=== PATIENT | female | born 1935 | race Caucasian/White ===

== ENCOUNTER 2016-08-31 12:21 | Inpatient (IN) ==
[2016-08-31] MEDS ORDERED: SODIUM CHLORIDE 0.9% 1,000 ML IV STA (13:46)
[2016-08-31] MEDS ORDERED: ONDANSETRON 4 MG/2 ML VIAL IV STA (13:47)
--- NOTE | 2016-08-31 14:02 | CT Report ---
History: Mental status changes Date: 08/31/2016 Study: CT head without contrast Comparison exam: March 03, [address] sections were obtained through the head without IV contrast. This CT exam was performed using one or more the following dose reduction techniques: Automated exposure control, adjustment of the MA and/or KV according to patient size, or use of iterative reconstruction technique. There is mild to moderate diffuse cerebral atrophy. The ventricles are midline in position without evidence of hydrocephalus. There is no mass or parenchymal hemorrhage. There is no gross CT evidence of acute cortical stroke. There is some patchy ill-defined decreased density in the periventricular white matter without mass effect compatible with changes of small vessel disease. There is no mass or parenchymal hemorrhage. There is no acute extra-axial hematoma. The partially visualized mastoid air cells and paranasal sinuses are clear except for some mild mucosal thickening and/or fluid in the partially visualized left maxillary sinus. There is no acute abnormality of the bony calvarium. Impression: No acute intracranial abnormality. Cerebral atrophy and periventricular small vessel disease. Mild left maxillary sinus disease PROCEDURE INTERPRETED AT [facility] DEPARTMENT OF RADIOLOGY Final Report Signed by: Dr. Silvina Waterman
--- NOTE | 2016-08-31 14:12 | XRay Report ---
Portable chest Date: 08/31/2016 Clinical history: Alteration of consciousness Comparison: 08/29/2016 Technique: Portable AP sitting chest Findings: The heart is normal in size with reduced parenchymal findings in the lungs. Multiple skinfolds noted. Residual right perihilar atelectasis with stable mediastinum and osseous structures. Impression: No acute cardiopulmonary pathology identified. PROCEDURE INTERPRETED AT [facility] DEPARTMENT OF RADIOLOGY Final Report Signed by: Dr. Luh Tillman
[2016-08-31] MEDS ORDERED: ONDANSETRON 4 MG/2 ML VIAL ONE (14:33)
--- NOTE | 2016-08-31 14:33 | Emergency Department Note ---
Vicky Ruano Hilary, am scribing for, and in the presence of, Christopher Diaz MD 13: 51. Emily Ruano James D, MD, personally performed the services described in this documentation, ascribed by Ca Perry in my presence, and it is both accurate and complete 432 . Arrival - Arrival Chief Complaint: Neuro Stated Complaint: trouble breathing ED Nursing Triage Note: pt family reports that she is more drowsy and lethargic today. reports recently changed from percocet to talwin per pain clinic and that she thinks she is having withdrawals. did not give talwin because it made her crazy. pt yawning in triage. answers questions appropriately but slowly. pt reports nausea. pt was seen here wednesday and offered admission but pt did not want admission at that time. Mode of Arrival: Wheelchair Limitations: No Limitations Source: Patient, RN Notes Reviewed Time Seen by Provider: 08/31/16 13:42 - History of Present Illness HPI Narrative: Pt is a 80 y/o white female presenting to the ED with c/o lethargic which onset today. Out of state family member is in the room and reports that she was vomiting 2 days ago and believes she is having withdrawls. Pt is on Talwin per pain clinic and her family member didn't give it to her because it "makes her crazy". Pt confirms nausea. Pts family member reports that the pt has a PMHx of Rheumatoid Arthritis and Alzeimers. No other complaints or problems stated in the ED. Onset (ago): day(s) Consistency: constant Severity: mild Severity scale (1-10): 1 Allergies/Adverse Reactions: Allergies Allergy/AdvReac Type Severity Reaction Status Date / Time fentanyl [From Duragesic] Allergy Confusion Verified 08/29/16 13:59 meperidine [From Demerol] Allergy Confusion Verified 08/29/16 13:59 Home Medications: Home Medications Medication Instructions Recorded Confirmed Type Aspirin [Ecotrin] 81 mg PO DAILY 10/03/14 08/29/16 History Atorvastatin [Lipitor] 20 mg PO DAILY 10/03/14 07/22/16 History Carbidopa/Levodopa 25-100 [Sinemet 1 tablet PO TID 10/03/14 08/29/16 History 25-100] Citalopram Hydrobromide 20 mg PO DAILY 10/03/14 08/29/16 History [Citalopram HBr] Furosemide Tab [Lasix Tab] 40 mg PO DAILY 10/03/14 08/29/16 History QUEtiapine [SEROquel] 25 mg PO BEDTIME 10/03/14 07/22/16 History Rivastigmine Tartrate 3 mg PO BID W/MEALS 10/03/14 07/22/16 History [Rivastigmine] clonazePAM [Clonazepam] 1 mg PO BID PRN 10/03/14 07/22/16 History rOPINIRole [Requip] 0.25 mg PO TID 10/03/14 07/22/16 History Clorazepate [Tranxene] 3.75 mg PO QAM PRN 07/22/16 07/22/16 History Oxycodone HCl/Acetaminophen 1 tablet PO Q8H PRN 07/22/16 07/22/16 History [Oxycodone-Acetaminophen 10-325] Spironolactone [Spironolactone] 25 mg PO DAILY 07/22/16 07/22/16 History Carvedilol [Coreg] 12.5 mg PO BID 08/29/16 08/29/16 History HYDROcodone/ACETAMIN 5-325 [[place] 1 tablet PO Q6H PRN 08/29/16 History 5-325] Levothyroxine Tab [Synthroid Tab] 75 mcg PO DAILY 08/29/16 08/29/16 History Ondansetron Odt Tab [Zofran Odt] 4 mg PO Q8H PRN #10 tablet 08/29/16 Rx Review of System - Review of System 12 point system: reviewed and no additional remarkable complaints except as stated - Review of System Constitutional: Present: other (Lethargic). Absent: fever Gastrointestinal: Present: nausea, vomiting Medical,Surgical,& Family Hx - Medical History Cardio: History of: CHF (nonischemic cardiomyopathy with an EF of 45%.) Neurology: History of: Cerebrovascular Accident, Dementia, Parkinson's Disease Endocrine: History of: Dyslipidemia, Thyroid Disorder Rheumatology: History of;: Rheumatoid Arthritis - Surgical History Orthopedic Surgeries: Surgical HX of;: Total Hip Replacement (2013) - Family History Family History: Denies;: Family Anesthesia Reaction, Family Cancer, Family Diabetes, Family Heart Disease, Family Hypertension, Family Psychiatric Problems, Family Stroke - Social History Smoking Status: Never smoker Exam Physical Examination: GENERAL: This is a well-nourished, well-developed in no apparent distress. Slightly confused, arousable, chronically ill appearing. VITAL SIGNS: Temperature: 98.7 Pulse: 98L Respiratory: 18 Blood Pressure: 89/ 63 O2 Sat: 95 HEENT: Head is normocephalic and atraumatic. Pupils are equally round and reactive to light. Extraocular movement are intact. Oropharynx is benign with moist mucous membranes. NECK: Neck is soft and supple without tenderness. There are no masses. There is no lymphadenopathy. LUNGS: Lungs are clear to auscultation bilaterally. Chest rises symmetrically. There is no chest wall tenderness. CV: Heart is regular rate and rhythm without murmurs, rubs, or gallops. ABDOMEN: Abdomen is soft, non-tender to palpation. There are no abnormal masses palpated. There is no organomegaly. Bowel sounds are present and active. SKIN: Skin is warm and dry. No rash. EXTREMITIES: Patient has full range of motion without tenderness. There is no pedal edema. NEUROLOGIC: Awake, alert, and oriented x4. Cranial nerves II through XII are grossly intact. There are no motorsensory deficits. PSYCHIATRIC: Normal affect. Normal mood. Vital Signs: Vital Signs Temperature 98.7 F 08/31/16 12:38 Pulse Rate 79 08/31/16 15:30 Respiratory Rate 18 08/31/16 15:30 Blood Pressure 120/53 08/31/16 15:30 O2 Sat by Pulse Oximetry 100 08/31/16 15:30 Course - Consultations Consultation #1: Discussed with Dr. Valiente. Patient will be admitted to his service. Initial orders written for him. He will assume patient's care upon arrival to the [facility]. Time: 16:11 Results - Labs CBC & BMP: 08/31/16 14:37 08/31/16 14:37 Lab Results: I have reviewed the patients labs Labs: Laboratory Tests 08/31/16 14:37 WBC 12.8 H D Neut % (Auto) 75.0 H Lymph % (Auto) 16.9 L Neut # (Auto) 9.6 H Laboratory Tests 08/31/16 14:37 Urine Color Straw Urine Appearance Clear Urine Urobilinogen < 2.0 H Laboratory Tests 08/31/16 14:37 Sodium 139 Potassium 4.4 Chloride 101 Carbon Dioxide 30 BUN 29 H Creatinine 1.60 H ALT 11 L Serum Alcohol < 15 L - EKG EKG results: interpreted by ERMD - Impressions EKG: Normal sinus rhythm with a rate of 80, nonspecific intraventricular conduction delay, nonspecific ST-T wave changes, normal axis. - Diagnostic Findings Procedure: Chest x-ray: report reviewed by me, image reviewed by me (No acute cardiopulmonary pathology identified. ), CT: report reviewed by me, image reviewed by me (HEAD: No acute intracranial abnormality. Cerebral atropjhy and pereiventricular small vessel disease. Mild left maxillary sinus disease) Disposition Clinical Impression: Altered mental status, Polypharmacy, Rheumatoid arthritis, Parkinsons disease, Nausea and vomiting Case discussed with: patient, patient's family Disposition: Still a Patient Condition: Stable
[2016-08-31 14:51] LABS: Basophils # 0.1 10*3/uL (0.0-0.2); Basophils % 0.6 % (0.0-0.8); Eosinophils # 0.2 10*3/uL (0.0-0.87); Eosinophils % 1.3 % (0.00-10.9); Hematocrit 38.8 VOL% (35.7-47.0); Immature Granulocytes % 0.3 %; Immature Granulocytes Absolute 0.04 #; Lymphocytes # 2.2 10*3/uL (1.4-4.0); Lymphocytes % 16.9 % (21.3-54.2); Mean Corpuscular HGB Conc 33.5 GM/DL (32-36); Mean Corpuscular Hemoglobin 32 PG (27-34); Mean Corpuscular Volume 93.9 FL (87-102); Mean Platelet Volume 10.1 FL (9.6-12.0); Monocytes # 0.8 10*3/uL (0.11-0.8); Monocytes % 5.9 % (1.7-12.7); Neutrophils # 9.6 10*3/uL (1.4-7.4); Platelet Count 227 T/CUMM (130-400); Red Blood Count 4.13 MC/CUMM (3.8-5.5); Red Cell Distribution Width 13.3 % (9.3-17.3); White Blood Count 12.8 T/CUMM (4-12)
[2016-08-31 14:56] LABS: Apearance,Urine CLEAR (Clear); Bilirubin,Urine Negative (Negative); Blood, Urine Negative (Negative); Glucose,Urine (UA) Negative (Negative); Hyaline Casts,Urine 4 /LPF (0-3); Ketones,Urine Negative (Negative); Nitrite,Urine Negative (Negative); Protein,Urine Negative; Urine Color Straw (Yellow); Urine Specific Gravity 1.008 (1.001-1.035); Urine Urobilinogen < 2.0 EU/DL (0.2-1.0); WBC,Urine 1 /HPF (0-6)
[2016-08-31 15:03] LABS: Barbiturates Screen,Urine Negative (Negative); Benzodiazepines Screen,Urine Negative (Negative); Cannabinoid Screen,Urine Negative (Negative); Opiate Screen,Urine Negative (Negative); PT Patient Result 10.9 SECS; Partial Thromboplastin Time 24.5 SECS (0-40); Phencyclidine Screen,Urine Negative (Negative)
[2016-08-31 15:16] LABS: Ammonia 16 UMOL/L (11-32)
[2016-08-31 15:29] LABS: Alanine Aminotransferase 11 U/L (13-56); Alkaline Phosphatase 89 U/L (45-117); Aspartate Amino Transferase 18 U/L (0-37); Blood Urea Nitrogen 29 MG/DL (7-18); Calcium 9.1 MG/DL (8.5-10.1); Glucose 103 MG/DL (74-106); Osmolality,Calculated 282.5 MOS/KG (273-304); Potassium 4.4 MMOL/L (3.5-5.1); Sodium 139 MMOL/L (136-145); Thyroid Stimulating Hormone 0.408 uIU/ml (0.358-3.74); Total Protein 6.8 G/DL (6.4-8.3); Troponin I Only 0.019 NG/ML (0.00-0.045)
[2016-08-31] MEDS ORDERED: ONDANSETRON 4 MG/2 ML VIAL IV PRN (17:41)
[2016-08-31] MEDS: SODIUM CHLORIDE 0.9% 1,000 ML IV SCH (19:13)
[2016-08-31] MEDS: ACETAMINOPHEN 325 MG TABLET PO PRN (20:11)
[2016-08-31] MEDS: DOCUSATE SODIUM 100 MG CAPSULE PO SCH (20:11)
[2016-08-31] MEDS ORDERED: ONDANSETRON 4 MG TABLET PO PRN (22:30)
[2016-08-31] MEDS: QUEtiapine 25 MG TABLET PO SCH (22:45)
[2016-09-01] MEDS: SODIUM CHLORIDE 0.9% 1,000 ML IV SCH ×3 (01:33→18:07)
--- NOTE | 2016-09-01 04:19 | EKG Report ---
Stationary ECG Study [facility] ER Test Date: 08/31/2016 2:49:03 PM Pat Name: JESS SANDY Department: Room: Gender: F [employer]: : 1935 Requested by: Christopher Bliss Order Number: [id number] Reading MD: ROBLES SCHROEDER Intervals [place] Rate: 80 P: 70 VT: 142 QRS: 65 QRSD: 132 T: 241 QT: 422 QTc: 458 Interpretive Statements SINUS RHYTHM NON-SPECIFIC INTRAVENTRICULAR CONDUCTION DELAY Electronically Signed On 08-31-16 16:35:05 CDT by ROBLES SCHROEDER [email or web address]
[2016-09-01] MEDS: ACETAMINOPHEN 325 MG TABLET PO PRN ×2 (04:20→09:28)
[2016-09-01 06:05] LABS: Basophils % 0.4 % (0.0-0.8); Eosinophils # 0.2 10*3/uL (0.0-0.87); Hematocrit 30.4 VOL% (35.7-47.0); Immature Granulocytes % 0.3 %; Immature Granulocytes Absolute 0.03 #; Lymphocytes # 2.3 10*3/uL (1.4-4.0); Lymphocytes % 25.3 % (21.3-54.2); Mean Corpuscular HGB Conc 32.9 GM/DL (32-36); Mean Corpuscular Hemoglobin 31 PG (27-34); Mean Corpuscular Volume 94.1 FL (87-102); Mean Platelet Volume 10.3 FL (9.6-12.0); Monocytes # 0.6 10*3/uL (0.11-0.8); Monocytes % 6.7 % (1.7-12.7); Neutrophils # 5.8 10*3/uL (1.4-7.4); Neutrophils % 65.3 % (38.7-73.9); Red Cell Distribution Width 13.2 % (9.3-17.3)
[2016-09-01] MEDS: LEVOTHYROXINE 75 MCG TABLET PO SCH (06:15)
[2016-09-01 06:21] LABS: Red Blood Count 3.23 MC/CUMM (3.8-5.5); White Blood Count 8.9 T/CUMM (4-12)
[2016-09-01 06:22] LABS: Platelet Count 181 T/CUMM (130-400)
[2016-09-01 06:45] LABS: Calcium 8.3 MG/DL (8.5-10.1); Magnesium 2.1 MG/DL (1.8-2.4); Potassium 4.2 MMOL/L (3.5-5.1)
[2016-09-01 06:55] LABS: Free T4 (Free Thyroxine) 1.06 NG/DL (0.76-1.46); Risk Ratio 2.07; Thyroid Stimulating Hormone 0.719 uIU/ml (0.358-3.74); VLDL CHOLESTEROL 12.8 MG/DL
[2016-09-01] MEDS: RIVASTIGMINE 1.5 MG CAPSULE PO SCH ×2 (08:07→16:11)
[2016-09-01] MEDS: ATORVASTATIN 20 MG TABLET PO SCH (08:07)
[2016-09-01] MEDS: LISINOPRIL 2.5 MG TABLET PO SCH (08:07)
[2016-09-01] MEDS: DOCUSATE SODIUM 100 MG CAPSULE PO SCH ×2 (08:08→21:10)
[2016-09-01] MEDS: clonazePAM 0.5 MG TABLET PO PRN ×2 (08:08→21:11)
[2016-09-01] MEDS: FUROSEMIDE 40 MG TABLET PO SCH (08:08)
[2016-09-01] MEDS: PANTOPRAZOLE 40 MG TABLET PO SCH (08:08)
[2016-09-01] MEDS: CITALOPRAM 20 MG TABLET PO SCH (08:08)
[2016-09-01] MEDS: rOPINIRole 0.25 MG TABLET PO SCH ×3 (08:12→21:14)
[2016-09-01] MEDS: CARVEDILOL 12.5 MG TABLET PO SCH ×2 (08:12→21:10)
[2016-09-01] MEDS: CARBIDOPA/LEVODOPA 25-100 MG TABLET PO SCH ×3 (08:12→21:10)
--- NOTE | 2016-09-01 08:40 | Family Practice History&Phys ---
Assessment and Plan (1) Altered mental status Status: Acute Assessment and plan: Patient was admitted with altered mental state. This may be related to recent change in medication versus other etiology. Will evaluate further Current Visit: Yes (2) Parkinsons disease Status: Chronic Assessment and plan: Stable on present medication Current Visit: Yes (3) Dementia Status: Chronic Assessment and plan: Patient has had a slow but steady decline. Current Visit: No (4) Rheumatoid arthritis Status: Acute Current Visit: Yes (5) Nonischemic cardiomyopathy Status: Chronic Assessment and plan: Stable to present Current Visit: No (6) Hypothyroidism Status: Chronic Assessment and plan: Stable on present medication Current Visit: Yes History of Present Illness Chief complaint: Mental confusion and weakness. History of present illness: Ms. Herrera is a 80 year old female Patient is an 80-year-old white female well known to me has had significant mental confusion and lethargy since her medications were changed pain clinic. Apparently she has been on chronic Percocet and was recently switched to Talwin. states that the Talwin makes her very agitated and lethargic. It also causes nausea. He has not given a medicine in the last 2 days because it is. States she has tried to contact the pain clinic. Patient is some better this a.m. is for his confusion. She is in significant pain from her rheumatoid arthritis. In view of history admitted for further evaluation therapy Home Medications Medication Instructions Recorded Confirmed Type Atorvastatin [Lipitor] 20 mg PO DAILY 10/03/14 08/31/16 History Carbidopa/Levodopa 25-100 [Sinemet 1 tablet PO TID 10/03/14 08/31/16 History 25-100] Citalopram Hydrobromide 20 mg PO DAILY 10/03/14 08/31/16 History [Citalopram HBr] Furosemide Tab [Lasix Tab] 40 mg PO DAILY 10/03/14 08/31/16 History QUEtiapine [SEROquel] 25 mg PO BEDTIME 10/03/14 08/31/16 History Rivastigmine Tartrate 4.5 mg PO BID W/MEALS 10/03/14 08/31/16 History [Rivastigmine] clonazePAM [Clonazepam] 1 mg PO BID PRN 10/03/14 08/31/16 History rOPINIRole [Requip] 0.25 mg PO TID 10/03/14 08/31/16 History Carvedilol [Coreg] 12.5 mg PO BID 08/29/16 08/31/16 History Levothyroxine Tab [Synthroid Tab] 75 mcg PO DAILY 08/29/16 08/31/16 History Lisinopril 2.5 mg PO DAILY 08/31/16 08/31/16 History Ondansetron Tab [Zofran Tab] 4 capsule PO Q8H 08/31/16 08/31/16 History Pentazocine HCl/Naloxone HCl 1 caplet PO TID 08/31/16 08/31/16 History [Pentazocine-Naloxone Tablet] Allergies Allergy/AdvReac Type Severity Reaction Status Date / Time fentanyl [From Duragesic] Allergy Confusion Verified 08/29/16 13:59 meperidine [From Demerol] Allergy Confusion Verified 08/29/16 13:59 Medical,Surgical,& Family Hx - Medical History Cardio: History of: CHF (nonischemic cardiomyopathy with an EF of 45%.) Neurology: History of: Cerebrovascular Accident, Dementia, Parkinson's Disease Endocrine: History of: Dyslipidemia, Thyroid Disorder Rheumatology: History of;: Rheumatoid Arthritis - Surgical History Orthopedic Surgeries: Surgical HX of;: Total Hip Replacement (2013) - Family History Family History: Denies;: Family Anesthesia Reaction, Family Cancer, Family Diabetes, Family Heart Disease, Family Hypertension, Family Psychiatric Problems, Family Stroke - Social History Smoking Status: Never smoker Frequency of Alcohol Use: None Type of Drug Use: None Marital Status: Lives With:: Spouse Functional capacity: uses cane/walker Exam - Constitutional Vitals: Period Temp Pulse Resp BP Sys/Marquez Pulse Ox Last 24 Hr 97.4 F-98.7 F 79-98 - 89-121/48-74 90-100 General appearance: mild distress - Head Head exam: Present: normal inspection - ENT ENT exam: Present: normal exam - Respiratory Respiratory exam: Present: clear to auscultation bilaterally - Cardiovascular Cardiovascular exam: Present: irregular rhythm - GI/Abdominal GI/Abdominal exam: Present: normal bowel sounds, soft. Absent: rebound - Extremities Exam Extremities exam: Present: full ROM - Back Exam Back exam: Present: muscle spasm, vertebral tenderness - Neurological Exam Neurological exam: Present: altered, other (Patient is confused but oriented.) - Psychiatric Psychiatric exam: Present: flat affect, other (Patient has significant short- term memory loss consistent with dementia) - Skin Skin exam: Present: normal color Results - Labs CBC & BMP: 09/01/16 05:49 09/01/16 05:49
[2016-09-01] MEDS ORDERED: [UNRECOGNIZED DRUG - OTHER] PO SCH (09:00)
[2016-09-01] MEDS ORDERED: NALOXONE HCL PO SCH (09:00)
[2016-09-01] MEDS ORDERED: PENTAZOCINE HCL PO SCH (09:00)
--- NOTE | 2016-09-01 10:57 | Pain Management Consult Note ---
Assessment and Plan (1) Altered mental status Status: Acute Assessment and plan: Her mental status is back to baseline. There have been multiple violations of her narcotic agreement with contributions from dementia and sharing meds with friends. Her husbands swears he has addressed the friends offending behaviors and will be the sole controller of her meds. I have agreed to allow her back on Percocet 5 tid with NO FURTHER violations, inappropriate urine findings etc. Close monitoring is warranted. Her use of multiple benzos while medically appropriate also places her at higher risk. Current Visit: Yes History of Present Illness Chief complaint: nausea and confusion History of present illness: Ms. Herrera is a 80 year old female followed by us for chronic pain complaints and receives as needed cervical epidurals. She has dementia and has had problems staying compliant on her narcotic agreement. She takes other opioids from friends without her husbands knowledge who manages her medicines. Because of recurring episodes of this we attempted to place her on Butrans patch but she could not afford it, so Ivy was prescibed. She did not tolerate this with nausea, and there may have been some minor withdrawal signs, but 3-4 days later woke with confusion and balance issues. She was continuing her Tranxene and Klonopin as well as Seroquel. She complains of pain all over but has no active withdrawal signs or sxs today, and her mental status is back to baseline. Home Medications Medication Instructions Recorded Confirmed Type Atorvastatin [Lipitor] 20 mg PO DAILY 10/03/14 08/31/16 History Carbidopa/Levodopa 25-100 [Sinemet 1 tablet PO TID 10/03/14 08/31/16 History 25-100] Citalopram Hydrobromide 20 mg PO DAILY 10/03/14 08/31/16 History [Citalopram HBr] Furosemide Tab [Lasix Tab] 40 mg PO DAILY 10/03/14 08/31/16 History QUEtiapine [SEROquel] 25 mg PO BEDTIME 10/03/14 08/31/16 History Rivastigmine Tartrate 4.5 mg PO BID W/MEALS 10/03/14 08/31/16 History [Rivastigmine] clonazePAM [Clonazepam] 1 mg PO BID PRN 10/03/14 08/31/16 History rOPINIRole [Requip] 0.25 mg PO TID 10/03/14 08/31/16 History Carvedilol [Coreg] 12.5 mg PO BID 08/29/16 08/31/16 History Levothyroxine Tab [Synthroid Tab] 75 mcg PO DAILY 08/29/16 08/31/16 History Lisinopril 2.5 mg PO DAILY 08/31/16 08/31/16 History Ondansetron Tab [Zofran Tab] 4 capsule PO Q8H 08/31/16 08/31/16 History Pentazocine HCl/Naloxone HCl 1 caplet PO TID 08/31/16 08/31/16 History [Pentazocine-Naloxone Tablet] Allergies Allergy/AdvReac Type Severity Reaction Status Date / Time fentanyl [From Duragesic] Allergy Confusion Verified 08/29/16 13:59 meperidine [From Demerol] Allergy Confusion Verified 08/29/16 13:59 Medical,Surgical,& Family Hx - Medical History Cardio: History of: CHF (nonischemic cardiomyopathy with an EF of 45%.) Neurology: History of: Cerebrovascular Accident, Dementia, Parkinson's Disease Endocrine: History of: Dyslipidemia, Thyroid Disorder Rheumatology: History of;: Rheumatoid Arthritis - Surgical History Orthopedic Surgeries: Surgical HX of;: Total Hip Replacement (2013) - Family History Family History: Denies;: Family Anesthesia Reaction, Family Cancer, Family Diabetes, Family Heart Disease, Family Hypertension, Family Psychiatric Problems, Family Stroke - Social History Smoking Status: Never smoker Frequency of Alcohol Use: None Type of Drug Use: None Exam - Constitutional Vitals: Period Temp Pulse Resp BP Sys/Marquez Pulse Ox Last 24 Hr 97.4 F-98.7 F 79-98 - 89-121/48-74 90-100 Results - Labs CBC & BMP: 09/01/16 05:49 09/01/16 05:49
--- NOTE | 2016-09-01 14:48 | Neurology Consult Note ---
History of Present Illness History of present illness: 8 years old right-handed white lady with past medical history significant for dementia, Parkinson disease, rheumatoid arthritis admitted to the hospital with altered mental status and increasing confusion disorientation and weakness. There is some element of dependency on opioid use as per Dr. Ryan notes. She was recently tried on Talwin but according to her she has developed increasing weakness and all the above-mentioned symptoms. At the present time she is feeling a lot better. She can get up and walk to the bathroom with min assist. She continued to have pain issues due to rheumatoid arthritis. CT of the head reveals diffuse cerebral atrophy. Parkinson's when she is quite stable overall. reported that she is almost 100% better since what she was before she came to the hospital. Home Medications Medication Instructions Recorded Confirmed Type Atorvastatin [Lipitor] 20 mg PO DAILY 10/03/14 08/31/16 History Carbidopa/Levodopa 25-100 [Sinemet 1 tablet PO TID 10/03/14 08/31/16 History 25-100] Citalopram Hydrobromide 20 mg PO DAILY 10/03/14 08/31/16 History [Citalopram HBr] Furosemide Tab [Lasix Tab] 40 mg PO DAILY 10/03/14 08/31/16 History QUEtiapine [SEROquel] 25 mg PO BEDTIME 10/03/14 08/31/16 History Rivastigmine Tartrate 4.5 mg PO BID W/MEALS 10/03/14 08/31/16 History [Rivastigmine] clonazePAM [Clonazepam] 1 mg PO BID PRN 10/03/14 08/31/16 History rOPINIRole [Requip] 0.25 mg PO TID 10/03/14 08/31/16 History Carvedilol [Coreg] 12.5 mg PO BID 08/29/16 08/31/16 History Levothyroxine Tab [Synthroid Tab] 75 mcg PO DAILY 08/29/16 08/31/16 History Lisinopril 2.5 mg PO DAILY 08/31/16 08/31/16 History Ondansetron Tab [Zofran Tab] 4 capsule PO Q8H 08/31/16 08/31/16 History Pentazocine HCl/Naloxone HCl 1 caplet PO TID 08/31/16 08/31/16 History [Pentazocine-Naloxone Tablet] Allergies Allergy/AdvReac Type Severity Reaction Status Date / Time fentanyl [From Duragesic] Allergy Confusion Verified 08/29/16 13:59 meperidine [From Demerol] Allergy Confusion Verified 08/29/16 13:59 12 point system: reviewed and no additional remarkable complaints except as stated Medical,Surgical,& Family Hx - Medical History Cardio: History of: CHF (nonischemic cardiomyopathy with an EF of 45%.) Neurology: History of: Cerebrovascular Accident, Dementia, Parkinson's Disease Endocrine: History of: Dyslipidemia, Thyroid Disorder Rheumatology: History of;: Rheumatoid Arthritis - Surgical History Orthopedic Surgeries: Surgical HX of;: Total Hip Replacement (2013) - Family History Family History: Denies;: Family Anesthesia Reaction, Family Cancer, Family Diabetes, Family Heart Disease, Family Hypertension, Family Psychiatric Problems, Family Stroke - Social History Smoking Status: Never smoker Frequency of Alcohol Use: None Type of Drug Use: None Exam - Constitutional Vitals: Period Temp Pulse Resp BP Sys/Marquez Pulse Ox Last 24 Hr 97.4 F-98.3 F 79-92 17-22 90-121/48-74 90-100 Exam: GENERAL: Patient is in no acute distress. NECK: Neck is supple. There is no JVD. No carotid bruits present. No thyroid masses. CVS: First and second heart sounds are normal. There is no S3 present. Regular rate and rhythm. RESPIRATORY: Lungs are clear to auscultation without any rales or rhonchi. ABDOMEN: Soft and non-tender. Bowel sounds are present. There is no hepatosplenomegaly. EXT: There is no palpable edema. Peripheral pulses are present. Skin: No rashes Central Nervous system: General: Alert, awake and Oriented x 2 Speech: Fluent Comprehension: Fair Facial expressions: Normal Cranial Nerves: CN1/Olfactory: Normal CN II/ Optic: Normal, Visual Mays unreliable CN III, and : JANELL & EOMI CN V: Normal & intact CN VII: face is symmetric CNVIII: Normal CN XI/X/XI/XII: Intact and Normal Motor: Bilateral cogwheel rigidity and bradykinesia Strength symmetrical Sensory: Grossly intact for all the modalities of PP, LT and temp sense Reflexes: 1+ and symmetrical Cerebellar function: Dysmetric finger to nose and heel to nava testing. Toes: Equivocal Gait: Able to get up and walk with mod assist Results - Labs CBC & BMP: 09/01/16 05:49 09/01/16 05:49 Assessment and Plan (1) Parkinsons disease Status: Chronic Assessment and plan: Continue Sinemet and Requip at the same dose Current Visit: No (2) Dementia Status: Chronic Assessment and plan: Continue Exelon and Seroquel at the same dose Current Visit: No (3) Altered mental status Status: Acute Assessment and plan: This could very well be due to pain medication side effects. Medications has been adjusted by Dr. Ryan and she is feeling much better. Continue watchful observation from neuro standpoint Thank you for the consult Current Visit: Yes
[2016-09-01] MEDS: oxyCODONE/ACETAMINOPHEN 5-325 MG TABLET PO PRN (21:11)
[2016-09-01] MEDS: QUEtiapine 25 MG TABLET PO SCH (21:11)
[2016-09-02] MEDS: SODIUM CHLORIDE 0.9% 1,000 ML IV SCH ×2 (02:15→11:30)
[2016-09-02 05:20] LABS: Basophils # 0.1 10*3/uL (0.0-0.2); Basophils % 0.6 % (0.0-0.8); Eosinophils # 0.3 10*3/uL (0.0-0.87); Eosinophils % 2.8 % (0.00-10.9); Hematocrit 30.9 VOL% (35.7-47.0); Hemoglobin 10.1 GM/DL (12.0-16.0); Immature Granulocytes % 0.5 %; Immature Granulocytes Absolute 0.05 #; Lymphocytes # 2.6 10*3/uL (1.4-4.0); Lymphocytes % 26.9 % (21.3-54.2); Mean Corpuscular HGB Conc 32.7 GM/DL (32-36); Mean Corpuscular Hemoglobin 31 PG (27-34); Mean Corpuscular Volume 94.2 FL (87-102); Mean Platelet Volume 10.3 FL (9.6-12.0); Monocytes # 0.7 10*3/uL (0.11-0.8); Monocytes % 6.8 % (1.7-12.7); Neutrophils # 6.1 10*3/uL (1.4-7.4); Neutrophils % 62.4 % (38.7-73.9); Platelet Count 192 T/CUMM (130-400); Red Blood Count 3.28 MC/CUMM (3.8-5.5); Red Cell Distribution Width 13.2 % (9.3-17.3); White Blood Count 9.8 T/CUMM (4-12)
[2016-09-02 05:42] LABS: Calcium 8.5 MG/DL (8.5-10.1); Osmolality,Calculated 292.7 MOS/KG (273-304); Potassium 4.1 MMOL/L (3.5-5.1)
[2016-09-02] MEDS: LEVOTHYROXINE 75 MCG TABLET PO SCH (06:25)
[2016-09-02 07:00] LABS: Apearance,Urine CLEAR (Clear); Bacteria,Urine Occasional /HPF (Few); Bilirubin,Urine Negative (Negative); Blood, Urine Negative (Negative); Glucose,Urine (UA) Negative (Negative); Ketones,Urine Negative (Negative); Mucus,Urine Occasional /LPF (Occasional); Nitrite,Urine Negative (Negative); Protein,Urine Negative; Urine Color Straw (Yellow); Urine Specific Gravity 1.009 (1.001-1.035); Urine Urobilinogen < 2.0 EU/DL (0.2-1.0)
[2016-09-02] MEDS: RIVASTIGMINE 1.5 MG CAPSULE PO SCH (07:45)
--- NOTE | 2016-09-02 08:29 | Discharge Summary ---
Hospital Course - Hospital Course Hospital Course: Ms. Herrera is a 80 year old female Patient is an 80-year-old white female well known to me has had significant mental confusion and lethargy since her medications were changed pain clinic. Apparently she has been on chronic Percocet and was recently switched to Talwin. states that the Talwin makes her very agitated and lethargic. It also causes nausea. He has not given a medicine in the last 2 days because it is. States she has tried to contact the pain clinic. Patient is some better this a.m. is for his confusion. She is in significant pain from her rheumatoid arthritis. In view of history admitted for further evaluation therapy. HOSPITAL COURSE - the patient was admitted to Hospital lab and x-ray studies obtained today. Certainly on IV fluids and treated symptomatically. Seen in consultation by Dr. Ryan from the pain clinic. She was also seen by Dr. Peter a local neurologist. Patient was started back on her previous pain medications and seemed to respond well. She rapidly was back to her stable state. Patient was much improved at time of discharge. We'll discharge to home care and arrange follow-up with the pain clinic and my office. We'll have her call or come to emergency room condition worsening problems develop Diagnosis - Discharge Diagnosis (1) Altered mental status Status: Acute (2) Parkinsons disease Status: Chronic (3) Dementia Status: Chronic (4) Rheumatoid arthritis Status: Acute (5) Nonischemic cardiomyopathy Status: Chronic (6) Hypothyroidism Status: Chronic Specialty Discharge - Follow Up or Referrals Follow up with: Ceferino Ryan MD [Physician] - 10/01/16 12:45 pm (Shaina Vega NP prescription for pain medication at the pharmacy) Mk Valiente DO [Primary Care Provider] - 09/17/16 2:30 pm Discharge Plan - Discharge Data Disposition: Disch To Home/Self Care Condition at Discharge: Stable Discharge Diet: advance to your usual diet Activity: ambulate only with your walker Weight Bearing at Discharge: weight bear as tolerated Contact your physician if you experience:: fever over 101, Nausea/Vomiting, Shortness of breath - Discharge Medications New oxyCODONE/ACETAMINOPHEN 5-325 [Percocet 5-325] 1 tablet PO Q8H PRN tablet PRN Reason: Pain Moderate (4-7) Continue Rivastigmine Tartrate [Rivastigmine] 4.5 mg PO BID W/MEALS QUEtiapine [SEROquel] 25 mg PO BEDTIME Carbidopa/Levodopa 25-100 [Sinemet 25-100] 1 tablet PO TID rOPINIRole [Requip] 0.25 mg PO TID Furosemide Tab [Lasix Tab] 40 mg PO DAILY clonazePAM [Clonazepam] 1 mg PO BID PRN PRN Reason: Anxiety Citalopram Hydrobromide [Citalopram HBr] 20 mg PO DAILY Atorvastatin [Lipitor] 20 mg PO DAILY Lisinopril 2.5 mg PO DAILY Carvedilol [Coreg] 12.5 mg PO BID Levothyroxine Tab [Synthroid Tab] 75 mcg PO DAILY Pentazocine HCl/Naloxone HCl [Pentazocine-Naloxone Tablet] 1 caplet PO TID Ondansetron Tab [Zofran Tab] 4 capsule PO Q8H - Follow Up or Referral Follow Up: Ceferino Ryan MD [Physician] - 10/01/16 12:45 pm (Shaina Vega NP prescription for pain medication at the pharmacy) Mk Valiente DO [Primary Care Provider] - 09/17/16 2:30 pm - Forms/Instructions Exam - Constitutional Vitals: Period Temp Pulse Resp BP Sys/Marquez Pulse Ox Last 24 Hr 97.1 F-98.7 F 63-86 18-20 106-114/54-66 92-96 General appearance: mild distress - Head Head exam: Present: normal inspection - Eye Pupils: Present: JANELL - ENT ENT exam: Present: normal exam - Neck Neck exam: Present: normal inspection - Respiratory Respiratory exam: Present: clear to auscultation bilaterally - Cardiovascular Cardiovascular exam: Present: irregular rhythm - GI/Abdominal GI/Abdominal exam: Present: normal bowel sounds, soft - Extremities Exam Extremities exam: Present: normal inspection - Back Exam Back exam: Present: normal inspection - Neurological Exam Neurological exam: Present: altered, other (patient has significantly altered gait secondary to her rheumatoid arthritis) - Psychiatric Psychiatric exam: Present: other (patient is confused and disoriented. She is able to answer some questions but becomes confused easily. This is back to her stable mental status exam) - Skin Skin exam: Present: normal color Discharge Results Labs on day of discharge: Labs from last 24 hours 06/09/02/16 09/02/16 06:53 04:55 04:55 WBC 9.8 RBC 3.28 L Hgb 10.1 L Hct 30.9 L MCV 94.2 MCH 31 MCHC 32.7 RDW 13.2 Plt Count 192 MPV 10.3 Neut % (Auto) 62.4 Lymph % (Auto) 26.9 [place] % (Auto) 6.8 Eos % (Auto) 2.8 Baso % (Auto) 0.6 Neut # (Auto) 6.1 Lymph # (Auto) 2.6 [place] # (Auto) 0.7 Eos # (Auto) 0.3 Baso # (Auto) 0.1 Immature Gran % 0.5 Nucleated RBC % 0.0 Immature Gran # 0.05 Nucleated RBCs # 0.00 Sodium 145 Potassium 4.1 Chloride 111 H Carbon Dioxide 26 Anion Gap 12.1 BUN 27 H Creatinine 1.30 H GFR Calculation 37 BUN/Creatinine Ratio 20.00 Glucose 95 Calculated Osmolality 292.7 Calcium 8.5 Urine Color Straw Urine Appearance Clear Urine pH 7.0 Ur Specific [place] 1.009 Urine Protein Negative Urine Glucose (UA) Negative Urine Ketones Negative Urine Blood Negative Urine Nitrate Negative Urine Bilirubin Negative Urine Urobilinogen < 2.0 H Urine Leukocytes Negative Urine Bacteria Occasional Urine Mucus Occasional Ur Culture Indicated? Not indicated DS: Provider Date of admission: 08/31/16 16:12 Primary care physician: Mk Valiente DO Attending physician on admission: Mk Valiente DO Consults: 08/31/16 17:41 Consult to Case Mgmt/Social Srvs [CONS] Routine Reason for Case Mgmt/Social Srvs: Discharge Planning Consult to Physician [CONS] Routine Comment: chronic pain syndrome Consulting Provider: Ceferino Ryan Person Notified: david Date Notified: 09/01/16 Time Notified: 08:15 Consult to Physician [CONS] Routine Comment: parkinsons Consulting Provider: Seth Peter Person Notified: Una Date Notified: 09/01/16 Time Notified: 09:40 08/31/16 17:54 Consult to Dietitian [CONS] Routine Reason for Dietitian: Other Discharging clinician: Mk Valiente DO
[2016-09-02] MEDS: rOPINIRole 0.25 MG TABLET PO SCH (09:47)
[2016-09-02] MEDS: LISINOPRIL 2.5 MG TABLET PO SCH (09:48)
[2016-09-02] MEDS: FUROSEMIDE 40 MG TABLET PO SCH (09:48)
[2016-09-02] MEDS: ATORVASTATIN 20 MG TABLET PO SCH (09:48)
[2016-09-02] MEDS: PANTOPRAZOLE 40 MG TABLET PO SCH (09:48)
[2016-09-02] MEDS: clonazePAM 0.5 MG TABLET PO PRN (09:48)
[2016-09-02] MEDS: CARVEDILOL 12.5 MG TABLET PO SCH (09:48)
[2016-09-02] MEDS: CARBIDOPA/LEVODOPA 25-100 MG TABLET PO SCH (09:48)
[2016-09-02] MEDS: CITALOPRAM 20 MG TABLET PO SCH (09:49)
[2016-09-02] MEDS: DOCUSATE SODIUM 100 MG CAPSULE PO SCH (09:49)
[2016-09-02] MEDS: oxyCODONE/ACETAMINOPHEN 5-325 MG TABLET PO PRN (09:54)
[2016-09-02 11:21] VITALS: BP 93/53
== END 2016-09-02 12:05 | disposition home or self-care (01) | DRG 948 ==
LOC: N.ED 12:21 → N.EDINP 16:12 → N.2E 17:38
PROVIDERS: ADMIT Family Medicine; ATTEND Family Medicine

== ENCOUNTER 2018-04-21 09:39 | Inpatient (IN) ==
[2018-04-21 10:07] LABS: Basophils # 0.1 10*3/uL (0.0-0.2); Basophils % 1.1 % (0.0-0.8); Eosinophils # 0.2 10*3/uL (0.0-0.87); Eosinophils % 2.6 % (0.00-10.9); Hematocrit 33.5 VOL% (35.7-47.0); Hemoglobin 10.3 GM/DL (12.0-16.0); Immature Granulocytes Absolute 0.06 #; Lymphocytes # 1.4 10*3/uL (1.4-4.0); Mean Corpuscular HGB Conc 30.7 GM/DL (32-36); Mean Corpuscular Hemoglobin 29 PG (27-34); Mean Corpuscular Volume 92.5 FL (87-102); Mean Platelet Volume 9.7 FL (9.6-12.0); Monocytes # 0.8 10*3/uL (0.11-0.8); Monocytes % 12.2 % (1.7-12.7); Neutrophils # 3.7 10*3/uL (1.4-7.4); Neutrophils % 60.1 % (38.7-73.9); Platelet Count 432 T/CUMM (130-400); Red Blood Count 3.62 MC/CUMM (3.8-5.5); Red Cell Distribution Width 14.9 % (9.3-17.3); White Blood Count 6.2 T/CUMM (4-12)
[2018-04-21 10:16] LABS: INR 1.1; PT Patient Result 11.6 SECS; Partial Thromboplastin Time 22.4 SECS (0-40)
[2018-04-21 10:34] LABS: Alanine Aminotransferase < 9 U/L (13-56); Albumin 2.1 G/DL (3.4-5.0); Alkaline Phosphatase 71 U/L (45-117); Aspartate Amino Transferase 20 U/L (0-37); Bilirubin,Total < 0.39 MG/DL (0.2-1.0); Blood Urea Nitrogen 6 MG/DL (7-18); Calcium 8.2 MG/DL (8.5-10.1); Glucose 96 MG/DL (74-106); Osmolality,Calculated 280.1 MOS/KG (273-304); Potassium 3.9 MMOL/L (3.5-5.1); Sodium 142 MMOL/L (136-145); Total Protein 5.5 G/DL (6.4-8.3)
[2018-04-21] MEDS ORDERED: ONDANSETRON 4 MG/2 ML VIAL IV PRN (11:32)
[2018-04-21] MEDS: SODIUM CHLORIDE 0.9% 1,000 ML IV SCH (11:45)
[2018-04-21] MEDS: ACETAMINOPHEN 325 MG TABLET PO PRN (17:12)
[2018-04-21] MEDS ORDERED: PANTOPRAZOLE 40 MG TABLET PO ONE (18:30)
[2018-04-21] MEDS: ALUMINUM/MAGNES/SIMETH MAX STR 30 ML UDCUP PO PRN (18:30)
[2018-04-21] MEDS ORDERED: ALBUTEROL/IPRATROPIUM 3 ML NEB RESP TX PRN (20:05)
[2018-04-21] MEDS: SIMVASTATIN 10 MG TABLET PO SCH (21:37)
[2018-04-21] MEDS: CARBIDOPA/LEVODOPA 25-100 MG TABLET PO SCH (21:37)
[2018-04-21] MEDS: DESITIN 4OZ/NYSTATIN 15 GRAM MIXTURE PASTE TOP SCH (21:37)
[2018-04-21] MEDS: rOPINIRole 1 MG TABLET PO SCH (21:37)
[2018-04-21] MEDS: CITALOPRAM 20 MG TABLET PO SCH (21:37)
[2018-04-21] MEDS: QUEtiapine 25 MG TABLET PO SCH (21:37)
[2018-04-21] MEDS: GABAPENTIN 100 MG CAPSULE PO SCH (21:37)
[2018-04-21] MEDS: METOPROLOL SUCCINATE XL 50 MG TABLET PO SCH (21:37)
[2018-04-21] MEDS: busPIRone 15 MG TABLET PO SCH (21:37)
[2018-04-21] MEDS: COLESTIPOL 1 GM TABLET PO SCH (21:37)
[2018-04-21] MEDS: DOCUSATE SODIUM 100 MG CAPSULE PO SCH (21:37)
[2018-04-22 05:54] LABS: Basophils # 0.1 10*3/uL (0.0-0.2); Basophils % 1.6 % (0.0-0.8); Eosinophils # 0.2 10*3/uL (0.0-0.87); Eosinophils % 3.8 % (0.00-10.9); Hematocrit 32.4 VOL% (35.7-47.0); Hemoglobin 10.2 GM/DL (12.0-16.0); Immature Granulocytes % 0.5 %; Immature Granulocytes Absolute 0.03 #; Lymphocytes # 1.5 10*3/uL (1.4-4.0); Lymphocytes % 23.7 % (21.3-54.2); Mean Corpuscular HGB Conc 31.5 GM/DL (32-36); Mean Corpuscular Hemoglobin 29 PG (27-34); Mean Corpuscular Volume 91.3 FL (87-102); Mean Platelet Volume 9.9 FL (9.6-12.0); Monocytes # 0.7 10*3/uL (0.11-0.8); Monocytes % 10.9 % (1.7-12.7); Neutrophils # 3.8 10*3/uL (1.4-7.4); Neutrophils % 59.5 % (38.7-73.9); Platelet Count 426 T/CUMM (130-400); Red Blood Count 3.55 MC/CUMM (3.8-5.5); Red Cell Distribution Width 14.9 % (9.3-17.3); White Blood Count 6.3 T/CUMM (4-12)
[2018-04-22 06:16] LABS: Alanine Aminotransferase < 6 U/L (13-56); Albumin 1.9 G/DL (3.4-5.0); Alkaline Phosphatase 63 U/L (45-117); Aspartate Amino Transferase 17 U/L (0-37); Blood Urea Nitrogen 7 MG/DL (7-18); Calcium 7.9 MG/DL (8.5-10.1); Cholesterol 67 MG/DL (50-200); Free T4 (Free Thyroxine) 1.25 NG/DL (0.76-1.46); Glucose 79 MG/DL (74-106); HDL Cholesterol 28 MG/DL (40-60); Osmolality,Calculated 275.4 MOS/KG (273-304); Potassium 3.9 MMOL/L (3.5-5.1); Risk Ratio 2.39; Sodium 140 MMOL/L (136-145); Total Protein 4.9 G/DL (6.4-8.3); Triglycerides 119 MG/DL (2-150); VLDL CHOLESTEROL 23.8 MG/DL
[2018-04-22] MEDS: LEVOTHYROXINE 75 MCG TABLET PO SCH (06:38)
[2018-04-22] MEDS: DESITIN 4OZ/NYSTATIN 15 GRAM MIXTURE PASTE TOP SCH ×2 (08:00→22:03)
[2018-04-22] MEDS: CYANOCOBALAMIN 500 MCG TABLET PO SCH (08:16)
[2018-04-22] MEDS: COLESTIPOL 1 GM TABLET PO SCH ×2 (08:17→22:03)
[2018-04-22] MEDS: LISINOPRIL 5 MG TABLET PO SCH (08:17)
[2018-04-22] MEDS: rOPINIRole 1 MG TABLET PO SCH ×3 (08:17→22:02)
[2018-04-22] MEDS: busPIRone 15 MG TABLET PO SCH ×3 (08:17→22:03)
[2018-04-22] MEDS: METOPROLOL SUCCINATE XL 50 MG TABLET PO SCH ×2 (08:17→22:03)
[2018-04-22] MEDS: CARBIDOPA/LEVODOPA 25-100 MG TABLET PO SCH ×3 (08:17→22:02)
[2018-04-22] MEDS: CITALOPRAM 20 MG TABLET PO SCH ×3 (08:17→22:03)
[2018-04-22] MEDS: ACETAMINOPHEN 325 MG TABLET PO PRN (08:18)
[2018-04-22] MEDS: CHOLECALCIFEROL 1,000 UNIT TABLET PO SCH (08:18)
[2018-04-22] MEDS: FUROSEMIDE 20 MG TABLET PO SCH (08:18)
[2018-04-22] MEDS: PANTOPRAZOLE 40 MG TABLET PO SCH (08:18)
[2018-04-22] MEDS: GABAPENTIN 100 MG CAPSULE PO SCH ×2 (08:18→22:03)
[2018-04-22] MEDS: DOCUSATE SODIUM 100 MG CAPSULE PO SCH ×2 (08:18→22:03)
[2018-04-22] MEDS: RIVASTIGMINE 1.5 MG CAPSULE PO SCH ×2 (08:21→17:38)
[2018-04-22] MEDS: ALUMINUM/MAGNES/SIMETH MAX STR 30 ML UDCUP PO PRN (08:24)
[2018-04-22] MEDS: clonazePAM 0.5 MG TABLET PO PRN (11:04)
[2018-04-22] MEDS: DEXTROSE 5% NACL 0.45% 1,000 ML IV SCH (14:45)
[2018-04-22] MEDS: SIMVASTATIN 10 MG TABLET PO SCH (22:03)
[2018-04-22] MEDS: QUEtiapine 25 MG TABLET PO SCH (22:03)
[2018-04-23] MEDS: DEXTROSE 5% NACL 0.45% 1,000 ML IV SCH ×2 (03:24→14:51)
[2018-04-23] MEDS: SODIUM CHLORIDE 0.9% 1,000 ML IV SCH ×3 (03:25→04:25)
[2018-04-23] MEDS: LEVOTHYROXINE 75 MCG TABLET PO SCH (05:56)
[2018-04-23 06:15] LABS: Basophils # 0.1 10*3/uL (0.0-0.2); Basophils % 1.1 % (0.0-0.8); Eosinophils # 0.3 10*3/uL (0.0-0.87); Eosinophils % 2.4 % (0.00-10.9); Hematocrit 34.8 VOL% (35.7-47.0); Hemoglobin 10.7 GM/DL (12.0-16.0); Immature Granulocytes % 0.4 %; Immature Granulocytes Absolute 0.04 #; Lymphocytes # 2.3 10*3/uL (1.4-4.0); Lymphocytes % 21.9 % (21.3-54.2); Mean Corpuscular HGB Conc 30.7 GM/DL (32-36); Mean Corpuscular Hemoglobin 29 PG (27-34); Mean Corpuscular Volume 92.6 FL (87-102); Mean Platelet Volume 9.9 FL (9.6-12.0); Monocytes # 0.7 10*3/uL (0.11-0.8); Monocytes % 7.2 % (1.7-12.7); Neutrophils # 6.9 10*3/uL (1.4-7.4); Platelet Count 448 T/CUMM (130-400); Red Blood Count 3.76 MC/CUMM (3.8-5.5); Red Cell Distribution Width 15.1 % (9.3-17.3); White Blood Count 10.3 T/CUMM (4-12)
[2018-04-23 06:33] LABS: Calcium 8.1 MG/DL (8.5-10.1); Osmolality,Calculated 278.3 MOS/KG (273-304); Potassium 4.1 MMOL/L (3.5-5.1)
[2018-04-23] MEDS: GABAPENTIN 100 MG CAPSULE PO SCH ×2 (09:32→21:48)
[2018-04-23] MEDS: LISINOPRIL 5 MG TABLET PO SCH (09:32)
[2018-04-23] MEDS: COLESTIPOL 1 GM TABLET PO SCH ×2 (09:32→21:47)
[2018-04-23] MEDS: CHOLECALCIFEROL 1,000 UNIT TABLET PO SCH (09:32)
[2018-04-23] MEDS: CYANOCOBALAMIN 500 MCG TABLET PO SCH (09:33)
[2018-04-23] MEDS: CARBIDOPA/LEVODOPA 25-100 MG TABLET PO SCH ×3 (09:33→21:48)
[2018-04-23] MEDS: rOPINIRole 1 MG TABLET PO SCH ×3 (09:33→21:48)
[2018-04-23] MEDS: METOPROLOL SUCCINATE XL 50 MG TABLET PO SCH ×2 (09:33→21:48)
[2018-04-23] MEDS: FUROSEMIDE 20 MG TABLET PO SCH (09:33)
[2018-04-23] MEDS: CITALOPRAM 20 MG TABLET PO SCH ×3 (09:33→21:48)
[2018-04-23] MEDS: busPIRone 15 MG TABLET PO SCH ×3 (09:33→21:48)
[2018-04-23] MEDS: PANTOPRAZOLE 40 MG TABLET PO SCH (09:33)
[2018-04-23] MEDS: DOCUSATE SODIUM 100 MG CAPSULE PO SCH ×2 (09:35→21:47)
[2018-04-23] MEDS: DESITIN 4OZ/NYSTATIN 15 GRAM MIXTURE PASTE TOP SCH ×2 (09:35→21:48)
[2018-04-23] MEDS: RIVASTIGMINE 1.5 MG CAPSULE PO SCH ×2 (09:36→17:55)
[2018-04-23] MEDS: clonazePAM 0.5 MG TABLET PO PRN (14:24)
[2018-04-23] MEDS: QUEtiapine 25 MG TABLET PO SCH (21:48)
[2018-04-23] MEDS: SIMVASTATIN 10 MG TABLET PO SCH (21:48)
[2018-04-24] MEDS: DEXTROSE 5% NACL 0.45% 1,000 ML IV SCH (00:51)
[2018-04-24] MEDS: SODIUM CHLORIDE 0.9% 1,000 ML IV SCH (03:21)
[2018-04-24] MEDS: clonazePAM 0.5 MG TABLET PO PRN ×2 (06:33→14:04)
[2018-04-24] MEDS: LEVOTHYROXINE 75 MCG TABLET PO SCH (06:34)
[2018-04-24] MEDS: RIVASTIGMINE 1.5 MG CAPSULE PO SCH ×2 (09:35→17:33)
[2018-04-24] MEDS: CYANOCOBALAMIN 500 MCG TABLET PO SCH (09:35)
[2018-04-24] MEDS: FUROSEMIDE 20 MG TABLET PO SCH (09:36)
[2018-04-24] MEDS: PANTOPRAZOLE 40 MG TABLET PO SCH (09:36)
[2018-04-24] MEDS: CITALOPRAM 20 MG TABLET PO SCH ×3 (09:36→20:00)
[2018-04-24] MEDS: DOCUSATE SODIUM 100 MG CAPSULE PO SCH (09:36)
[2018-04-24] MEDS: GABAPENTIN 100 MG CAPSULE PO SCH ×2 (09:36→20:00)
[2018-04-24] MEDS: busPIRone 15 MG TABLET PO SCH ×3 (09:36→20:00)
[2018-04-24] MEDS: CHOLECALCIFEROL 1,000 UNIT TABLET PO SCH (09:36)
[2018-04-24] MEDS: LISINOPRIL 5 MG TABLET PO SCH (09:36)
[2018-04-24] MEDS: METOPROLOL SUCCINATE XL 50 MG TABLET PO SCH ×2 (09:37→20:00)
[2018-04-24] MEDS: rOPINIRole 1 MG TABLET PO SCH ×3 (09:37→20:00)
[2018-04-24] MEDS: CARBIDOPA/LEVODOPA 25-100 MG TABLET PO SCH ×3 (09:37→20:00)
[2018-04-24] MEDS: COLESTIPOL 1 GM TABLET PO SCH ×2 (09:37→20:00)
[2018-04-24] MEDS: DESITIN 4OZ/NYSTATIN 15 GRAM MIXTURE PASTE TOP SCH ×2 (09:37→20:00)
[2018-04-24] MEDS: SIMVASTATIN 10 MG TABLET PO SCH (20:00)
[2018-04-24] MEDS: QUEtiapine 25 MG TABLET PO SCH (20:00)
[2018-04-25] MEDS: DOCUSATE SODIUM 100 MG CAPSULE PO SCH (00:58)
[2018-04-25 06:14] LABS: Basophils # 0.1 10*3/uL (0.0-0.2); Basophils % 1.3 % (0.0-0.8); Eosinophils # 0.2 10*3/uL (0.0-0.87); Eosinophils % 2.7 % (0.00-10.9); Hematocrit 32.1 VOL% (35.7-47.0); Hemoglobin 10.1 GM/DL (12.0-16.0); Immature Granulocytes % 0.4 %; Immature Granulocytes Absolute 0.03 #; Lymphocytes % 27.8 % (21.3-54.2); Mean Corpuscular HGB Conc 31.5 GM/DL (32-36); Mean Corpuscular Hemoglobin 29 PG (27-34); Mean Corpuscular Volume 91.7 FL (87-102); Mean Platelet Volume 10.2 FL (9.6-12.0); Monocytes # 0.7 10*3/uL (0.11-0.8); Monocytes % 9.1 % (1.7-12.7); Neutrophils # 4.2 10*3/uL (1.4-7.4); Neutrophils % 58.7 % (38.7-73.9); Platelet Count 390 T/CUMM (130-400); Red Cell Distribution Width 15.1 % (9.3-17.3); White Blood Count 7.2 T/CUMM (4-12)
[2018-04-25 06:33] LABS: Calcium 8.4 MG/DL (8.5-10.1); Osmolality,Calculated 276.3 MOS/KG (273-304); Potassium 3.5 MMOL/L (3.5-5.1)
[2018-04-25] MEDS ORDERED: MAGNESIUM CHLORIDE 64 MG TABLET PO SCH (09:00)
[2018-04-25] MEDS: RIVASTIGMINE 1.5 MG CAPSULE PO SCH (09:37)
[2018-04-25] MEDS: LISINOPRIL 5 MG TABLET PO SCH (09:37)
[2018-04-25] MEDS: COLESTIPOL 1 GM TABLET PO SCH (09:37)
[2018-04-25] MEDS: busPIRone 15 MG TABLET PO SCH (09:37)
[2018-04-25] MEDS: CITALOPRAM 20 MG TABLET PO SCH (09:37)
[2018-04-25] MEDS: CHOLECALCIFEROL 1,000 UNIT TABLET PO SCH (09:37)
[2018-04-25] MEDS: METOPROLOL SUCCINATE XL 50 MG TABLET PO SCH (09:38)
[2018-04-25] MEDS: rOPINIRole 1 MG TABLET PO SCH (09:38)
[2018-04-25] MEDS: CYANOCOBALAMIN 500 MCG TABLET PO SCH (09:38)
[2018-04-25] MEDS: PANTOPRAZOLE 40 MG TABLET PO SCH (09:38)
[2018-04-25] MEDS: DESITIN 4OZ/NYSTATIN 15 GRAM MIXTURE PASTE TOP SCH (09:38)
[2018-04-25] MEDS: GABAPENTIN 100 MG CAPSULE PO SCH (09:38)
[2018-04-25] MEDS: CARBIDOPA/LEVODOPA 25-100 MG TABLET PO SCH (09:38)
[2018-04-25] MEDS: FUROSEMIDE 20 MG TABLET PO SCH (09:38)
[2018-04-25] MEDS: clonazePAM 0.5 MG TABLET PO PRN (09:47)
[2018-04-25] MEDS: LEVOTHYROXINE 75 MCG TABLET PO SCH (09:54)
[2018-04-25 10:02] VITALS: BP 103/69
== END 2018-04-25 10:43 | disposition home health service (06) | DRG 313 ==
LOC: N.ED 09:39 → N.EDINP 09:39 → N.5E 12:54
PROVIDERS: ADMIT Family Medicine; ATTEND Family Medicine

== ENCOUNTER 2018-08-11 10:14 | Observation (INO) ==
[2018-08-11] MEDS ORDERED: SODIUM CHLORIDE 0.9% 1,000 ML IV STA ×2 (10:37→12:41)
[2018-08-11 11:37] LABS: Barbiturates Screen,Urine Negative (Negative); Benzodiazepines Screen,Urine Negative (Negative); Cannabinoid Screen,Urine Negative (Negative); Opiate Screen,Urine Negative (Negative); Phencyclidine Screen,Urine Negative (Negative)
[2018-08-11 11:41] LABS: Apearance,Urine CLEAR (Clear); Bilirubin,Urine Negative (Negative); Blood, Urine Negative (Negative); Glucose,Urine (UA) Negative (Negative); Hyaline Casts,Urine 53 /LPF (0-3); Ketones,Urine Negative (Negative); Mucus,Urine Occasional /LPF (Occasional); Nitrite,Urine Negative (Negative); Protein,Urine Negative; RBC,Urine <1 /HPF (0-4); Urine Color Yellow (Yellow); Urine Specific Gravity 1.019 (1.001-1.035); Urine Urobilinogen < 2.0 EU/DL (0.2-1.0); WBC,Urine 1 /HPF (0-6)
[2018-08-11 11:46] LABS: Basophils # 0.1 10*3/uL (0.0-0.2); Basophils % 0.5 % (0.0-0.8); Eosinophils # 0.2 10*3/uL (0.0-0.87); Eosinophils % 1.2 % (0.00-10.9); Hemoglobin 12.3 GM/DL (12.0-16.0); Immature Granulocytes % 0.6 %; Immature Granulocytes Absolute 0.08 #; Lymphocytes # 0.9 10*3/uL (1.4-4.0); Lymphocytes % 7.2 % (21.3-54.2); Mean Corpuscular HGB Conc 30.8 GM/DL (32-36); Mean Platelet Volume 10.3 FL (9.6-12.0); Monocytes % 3.5 % (1.7-12.7); Platelet Count 249 T/CUMM (130-400); Red Blood Count 4.21 MC/CUMM (3.8-5.5); Red Cell Distribution Width 15.5 % (9.3-17.3)
[2018-08-11 12:16] LABS: Alanine Aminotransferase < 9 U/L (13-56); Albumin 3.9 G/DL (3.4-5.0); Alkaline Phosphatase 82 U/L (45-117); Aspartate Amino Transferase 12 U/L (0-37); Blood Urea Nitrogen 31 MG/DL (7-18); Calcium 8.3 MG/DL (8.5-10.1); Glucose 89 MG/DL (74-106); Osmolality,Calculated 286.3 MOS/KG (273-304); Total Protein 6.8 G/DL (6.4-8.3)
[2018-08-11] MEDS ORDERED: ACETAMINOPHEN 325 MG TABLET PO PRN (14:05)
[2018-08-11] MEDS ORDERED: ONDANSETRON 4 MG/2 ML VIAL IV PRN (14:05)
[2018-08-11] MEDS ORDERED: clonazePAM 0.5 MG TABLET PO PRN (14:07)
[2018-08-11] MEDS ORDERED: ENOXAPARIN 30 MG/0.3 ML SYRINGE SUBCUT SCH (14:30)
[2018-08-11] MEDS: busPIRone 15 MG TABLET PO SCH ×2 (16:19→20:45)
[2018-08-11] MEDS: RIVASTIGMINE 1.5 MG CAPSULE PO SCH (16:19)
[2018-08-11] MEDS: rOPINIRole 1 MG TABLET PO SCH ×2 (16:19→20:45)
[2018-08-11] MEDS: DEXTROSE 5% NACL 0.9% 1,000 ML IV SCH (16:29)
[2018-08-11] MEDS: GABAPENTIN 100 MG CAPSULE PO SCH (20:45)
[2018-08-11] MEDS: DOCUSATE SODIUM 100 MG CAPSULE PO SCH (20:45)
[2018-08-11] MEDS ORDERED: SIMVASTATIN 10 MG TABLET PO SCH (21:00)
[2018-08-12] MEDS: DEXTROSE 5% NACL 0.9% 1,000 ML IV SCH (00:16)
[2018-08-12 05:12] LABS: Osmolality,Calculated 298.4 MOS/KG (273-304)
[2018-08-12 08:01] VITALS: BP 132/90
[2018-08-12] MEDS ORDERED: CHOLECALCIFEROL 1,000 UNIT TABLET PO SCH (09:00)
[2018-08-12] MEDS ORDERED: PANTOPRAZOLE 40 MG TABLET PO SCH (09:00)
[2018-08-12] MEDS ORDERED: LEVOTHYROXINE 75 MCG TABLET PO SCH (09:00)
[2018-08-12] MEDS ORDERED: CYANOCOBALAMIN 500 MCG TABLET PO SCH (09:00)
[2018-08-12] MEDS: GABAPENTIN 100 MG CAPSULE PO SCH (09:04)
[2018-08-12] MEDS: RIVASTIGMINE 1.5 MG CAPSULE PO SCH (09:04)
[2018-08-12] MEDS: DOCUSATE SODIUM 100 MG CAPSULE PO SCH (09:04)
[2018-08-12] MEDS: rOPINIRole 1 MG TABLET PO SCH (09:04)
[2018-08-12] MEDS: busPIRone 15 MG TABLET PO SCH (09:05)
== END 2018-08-12 12:00 | disposition home health service (06) ==
LOC: N.ED 10:14 → N.EDINP 10:14 → N.4E 15:30
PROVIDERS: ADMIT Family Medicine; ATTEND Family Medicine

== ENCOUNTER 2018-08-31 07:16 | Inpatient (IN) ==
[2018-08-31] MEDS ORDERED: SODIUM CHLORIDE 0.9% 1,000 ML IV STA (08:23)
[2018-08-31] MEDS ORDERED: PROMETHAZINE 25 MG/1 ML VIAL IM STA (08:24)
[2018-08-31 09:12] LABS: Apearance,Urine CLEAR (Clear); Bilirubin,Urine Negative (Negative); Blood, Urine Negative (Negative); Glucose,Urine (UA) Negative (Negative); Ketones,Urine Negative (Negative); Mucus,Urine Occasional /LPF (Occasional); Nitrite,Urine Negative (Negative); Protein,Urine Negative; RBC,Urine <1 /HPF (0-4); Urine Color Yellow (Yellow); Urine Specific Gravity 1.017 (1.001-1.035); Urine Urobilinogen < 2.0 EU/DL (0.2-1.0); WBC,Urine <1 /HPF (0-6)
[2018-08-31 09:27] LABS: Basophils # 0.1 10*3/uL (0.0-0.2); Basophils % 0.6 % (0.0-0.8); Eosinophils # 0.3 10*3/uL (0.0-0.87); Eosinophils % 1.9 % (0.00-10.9); Hematocrit 29.7 VOL% (35.7-47.0); Hemoglobin 9.4 GM/DL (12.0-16.0); Immature Granulocytes % 0.6 %; Immature Granulocytes Absolute 0.08 #; Lymphocytes # 2.3 10*3/uL (1.4-4.0); Mean Corpuscular HGB Conc 31.6 GM/DL (32-36); Mean Corpuscular Volume 93.1 FL (87-102); Mean Platelet Volume 10.4 FL (9.6-12.0); Monocytes % 8.9 % (1.7-12.7); Platelet Count 396 T/CUMM (130-400); Red Blood Count 3.19 MC/CUMM (3.8-5.5); Red Cell Distribution Width 15.1 % (9.3-17.3); White Blood Count 14.2 T/CUMM (4-12)
[2018-08-31 09:57] LABS: Alanine Aminotransferase < 9 U/L (13-56); Albumin 3.3 G/DL (3.4-5.0); Alkaline Phosphatase 83 U/L (45-117); Aspartate Amino Transferase 14 U/L (0-37); Blood Urea Nitrogen 20 MG/DL (7-18); Glucose 106 MG/DL (74-106); Osmolality,Calculated 277.7 MOS/KG (273-304); Total Protein 6.3 G/DL (6.4-8.3)
[2018-08-31] MEDS ORDERED: ACETAMINOPHEN 325 MG TABLET PO PRN (12:12)
[2018-08-31] MEDS ORDERED: PROMETHAZINE 25 MG/1 ML VIAL IM PRN (12:12)
[2018-08-31] MEDS: SODIUM CHLORIDE 0.9% 1,000 ML IV SCH ×2 (12:42→20:21)
[2018-08-31] MEDS: HYDROmorphone 2 MG/1 ML VIAL IV PRN ×2 (14:34→22:34)
[2018-08-31] MEDS: ONDANSETRON 4 MG/2 ML VIAL IV PRN (20:21)
[2018-08-31] MEDS: busPIRone 15 MG TABLET PO SCH (21:21)
[2018-08-31] MEDS: rOPINIRole 1 MG TABLET PO SCH (21:21)
[2018-08-31] MEDS: GABAPENTIN 100 MG CAPSULE PO SCH (21:21)
[2018-08-31] MEDS: SIMVASTATIN 10 MG TABLET PO SCH (21:21)
[2018-08-31] MEDS: DOCUSATE SODIUM 100 MG CAPSULE PO SCH (21:21)
[2018-08-31] MEDS: METOPROLOL SUCCINATE XL 50 MG TABLET PO SCH (21:21)
[2018-08-31 21:55] LABS: Hematocrit 23.5 VOL% (35.7-47.0); Hemoglobin 7.6 GM/DL (12.0-16.0)
[2018-09-01 03:05] LABS: Basophils % 0.3 % (0.0-0.8); Eosinophils # 0.2 10*3/uL (0.0-0.87); Eosinophils % 2.3 % (0.00-10.9); Hematocrit 19.7 VOL% (35.7-47.0); Immature Granulocytes % 0.3 %; Immature Granulocytes Absolute 0.02 #; Lymphocytes % 25.4 % (21.3-54.2); Mean Corpuscular Volume 92.9 FL (87-102); Mean Platelet Volume 11.7 FL (9.6-12.0); Neutrophils % 61.7 % (38.7-73.9); Platelet Count 189 T/CUMM (130-400); Red Cell Distribution Width 15.3 % (9.3-17.3); White Blood Count 7.9 T/CUMM (4-12)
[2018-09-01 03:26] LABS: Alanine Aminotransferase < 6 U/L (13-56); Albumin 2.4 G/DL (3.4-5.0); Alkaline Phosphatase 61 U/L (45-117); Aspartate Amino Transferase 8 U/L (0-37); Bilirubin,Total < 0.39 MG/DL (0.2-1.0); Blood Urea Nitrogen 13 MG/DL (7-18); Calcium 7.5 MG/DL (8.5-10.1); Glucose 93 MG/DL (74-106); Osmolality,Calculated 278.4 MOS/KG (273-304); Total Protein 4.7 G/DL (6.4-8.3)
[2018-09-01 03:42] LABS: Ferritin 33.5 ng/ml (8-252); Risk Ratio 2.85; Thyroid Stimulating Hormone 8.13 uIU/ml (0.358-3.74)
[2018-09-01] MEDS: SODIUM CHLORIDE 0.9% 1,000 ML IV SCH ×2 (03:45→20:53)
[2018-09-01] MEDS: ONDANSETRON 4 MG/2 ML VIAL IV PRN (03:45)
[2018-09-01 03:55] LABS: Hemoglobin 6.3 GM/DL (12.0-16.0); Red Blood Count 2.12 MC/CUMM (3.8-5.5)
[2018-09-01] MEDS ORDERED: SODIUM CHLORIDE 0.9% 1,000 ML IV PRN (04:15)
[2018-09-01] MEDS: LEVOTHYROXINE 75 MCG TABLET PO SCH (06:06)
[2018-09-01] MEDS ORDERED: LACTATED RINGERS 1,000 ML IV SCH (08:00)
[2018-09-01 08:36] LABS: Hematocrit 22.3 VOL% (35.7-47.0); Hemoglobin 6.9 GM/DL (12.0-16.0)
[2018-09-01] MEDS ORDERED: LIDOCAINE 100 MG/5 ML SYRINGE ONE (09:00)
[2018-09-01] MEDS ORDERED: PANTOPRAZOLE 40 MG TABLET PO SCH (09:00)
[2018-09-01] MEDS ORDERED: PROPOFOL 200 MG/20 ML VIAL IV ONE (09:00)
[2018-09-01] MEDS ORDERED: PANTOPRAZOLE 40 MG VIAL IV SCH (09:00)
[2018-09-01] MEDS: RIVASTIGMINE 1.5 MG CAPSULE PO SCH ×2 (09:34→16:54)
[2018-09-01] MEDS: busPIRone 15 MG TABLET PO SCH ×3 (09:34→20:54)
[2018-09-01] MEDS: METOPROLOL SUCCINATE XL 50 MG TABLET PO SCH ×2 (09:35→20:54)
[2018-09-01] MEDS: GABAPENTIN 100 MG CAPSULE PO SCH ×2 (09:35→20:54)
[2018-09-01] MEDS: rOPINIRole 1 MG TABLET PO SCH ×3 (09:35→20:54)
[2018-09-01] MEDS: DOCUSATE SODIUM 100 MG CAPSULE PO SCH ×2 (09:35→20:54)
[2018-09-01] MEDS: HYDROmorphone 2 MG/1 ML VIAL IV PRN ×3 (10:44→22:11)
[2018-09-01] MEDS: PANTOPRAZOLE 40 MG VIAL IV SCH ×2 (14:02→20:53)
[2018-09-01] MEDS: CHOLECALCIFEROL 1,000 UNIT TABLET PO SCH (14:02)
[2018-09-01] MEDS: clonazePAM 0.5 MG TABLET PO PRN (15:41)
[2018-09-01 17:34] LABS: Hemoglobin 9.5 GM/DL (12.0-16.0)
[2018-09-01 20:09] LABS: Hematocrit 30.1 VOL% (35.7-47.0); Hemoglobin 9.6 GM/DL (12.0-16.0)
[2018-09-01] MEDS: SIMVASTATIN 10 MG TABLET PO SCH (20:54)
[2018-09-02] MEDS: SODIUM CHLORIDE 0.9% 1,000 ML IV SCH ×3 (04:08→21:11)
[2018-09-02] MEDS: LEVOTHYROXINE 75 MCG TABLET PO SCH (05:25)
[2018-09-02] MEDS: CHOLECALCIFEROL 1,000 UNIT TABLET PO SCH (08:31)
[2018-09-02] MEDS: DOCUSATE SODIUM 100 MG CAPSULE PO SCH ×2 (08:31→21:11)
[2018-09-02] MEDS: rOPINIRole 1 MG TABLET PO SCH ×3 (08:31→21:11)
[2018-09-02] MEDS: GABAPENTIN 100 MG CAPSULE PO SCH ×2 (08:31→21:11)
[2018-09-02] MEDS: PANTOPRAZOLE 40 MG VIAL IV SCH ×2 (08:31→21:12)
[2018-09-02] MEDS: RIVASTIGMINE 1.5 MG CAPSULE PO SCH ×2 (08:31→16:14)
[2018-09-02] MEDS: METOPROLOL SUCCINATE XL 50 MG TABLET PO SCH ×2 (08:32→23:20)
[2018-09-02] MEDS: busPIRone 15 MG TABLET PO SCH ×3 (08:32→21:11)
[2018-09-02] MEDS: HYDROmorphone 2 MG/1 ML VIAL IV PRN (11:31)
[2018-09-02] MEDS: clonazePAM 0.5 MG TABLET PO PRN ×2 (13:21→21:12)
[2018-09-02 13:49] LABS: Hematocrit 28.7 VOL% (35.7-47.0)
[2018-09-02 19:44] LABS: Hematocrit 30.7 VOL% (35.7-47.0); Hemoglobin 9.6 GM/DL (12.0-16.0)
[2018-09-02] MEDS: SIMVASTATIN 10 MG TABLET PO SCH (21:11)
[2018-09-03] MEDS: SODIUM CHLORIDE 0.9% 1,000 ML IV SCH ×3 (03:14→18:40)
[2018-09-03] MEDS: HYDROmorphone 2 MG/1 ML VIAL IV PRN ×2 (04:24→12:06)
[2018-09-03 05:28] LABS: Alanine Aminotransferase < 9 U/L (13-56); Albumin 2.4 G/DL (3.4-5.0); Alkaline Phosphatase 67 U/L (45-117); Aspartate Amino Transferase 11 U/L (0-37); Blood Urea Nitrogen 6 MG/DL (7-18); Calcium 8.4 MG/DL (8.5-10.1); Glucose 77 MG/DL (74-106); Osmolality,Calculated 284.7 MOS/KG (273-304); Total Protein 5.3 G/DL (6.4-8.3)
[2018-09-03 05:33] LABS: Basophils % 0.5 % (0.0-0.8); Eosinophils # 0.4 10*3/uL (0.0-0.87); Eosinophils % 7.4 % (0.00-10.9); Hematocrit 31.9 VOL% (35.7-47.0); Immature Granulocytes % 0.4 %; Immature Granulocytes Absolute 0.02 #; Lymphocytes # 1.5 10*3/uL (1.4-4.0); Mean Corpuscular HGB Conc 31.3 GM/DL (32-36); Mean Platelet Volume 10.7 FL (9.6-12.0); Monocytes % 10.2 % (1.7-12.7); Neutrophils % 55.5 % (38.7-73.9); Platelet Count 315 T/CUMM (130-400); Red Blood Count 3.43 MC/CUMM (3.8-5.5); Red Cell Distribution Width 15.1 % (9.3-17.3); White Blood Count 5.7 T/CUMM (4-12)
[2018-09-03] MEDS: LEVOTHYROXINE 75 MCG TABLET PO SCH (05:45)
[2018-09-03] MEDS ORDERED: POTASSIUM CHLORIDE 20 MEQ TABLET PO ONE (08:43)
[2018-09-03] MEDS: RIVASTIGMINE 1.5 MG CAPSULE PO SCH ×2 (09:28→17:31)
[2018-09-03] MEDS: DOCUSATE SODIUM 100 MG CAPSULE PO SCH ×2 (09:29→20:22)
[2018-09-03] MEDS: METOPROLOL SUCCINATE XL 50 MG TABLET PO SCH ×2 (09:29→20:22)
[2018-09-03] MEDS: CHOLECALCIFEROL 1,000 UNIT TABLET PO SCH (09:29)
[2018-09-03] MEDS: rOPINIRole 1 MG TABLET PO SCH ×3 (09:29→20:22)
[2018-09-03] MEDS: GABAPENTIN 100 MG CAPSULE PO SCH ×2 (09:29→20:22)
[2018-09-03] MEDS: busPIRone 15 MG TABLET PO SCH ×3 (09:29→20:22)
[2018-09-03] MEDS: PANTOPRAZOLE 40 MG VIAL IV SCH ×2 (09:30→20:22)
[2018-09-03 17:47] LABS: Basophils % 0.6 % (0.0-0.8); Eosinophils # 0.4 10*3/uL (0.0-0.87); Eosinophils % 7.7 % (0.00-10.9); Hematocrit 29.5 VOL% (35.7-47.0); Hemoglobin 9.4 GM/DL (12.0-16.0); Immature Granulocytes % 0.4 %; Immature Granulocytes Absolute 0.02 #; Lymphocytes # 1.6 10*3/uL (1.4-4.0); Lymphocytes % 29.8 % (21.3-54.2); Mean Corpuscular HGB Conc 31.9 GM/DL (32-36); Mean Corpuscular Volume 92.5 FL (87-102); Mean Platelet Volume 9.9 FL (9.6-12.0); Monocytes % 11.5 % (1.7-12.7); Platelet Count 307 T/CUMM (130-400); Red Blood Count 3.19 MC/CUMM (3.8-5.5); Red Cell Distribution Width 15.1 % (9.3-17.3); White Blood Count 5.3 T/CUMM (4-12)
[2018-09-03 18:09] LABS: Troponin I < 0.015 NG/ML (0.00-0.045)
[2018-09-03] MEDS ORDERED: ALUM/MAG/SIMETH/LIDO VISC 1:1 30 ML BOTTLE PO ONE (18:18)
[2018-09-03] MEDS ORDERED: ALBUTEROL/IPRATROPIUM 3 ML NEB RESP TX ONE (18:18)
[2018-09-03] MEDS: SIMVASTATIN 10 MG TABLET PO SCH (20:22)
[2018-09-04] MEDS: HYDROmorphone 2 MG/1 ML VIAL IV PRN ×3 (00:35→23:31)
[2018-09-04] MEDS: SODIUM CHLORIDE 0.9% 1,000 ML IV SCH ×4 (03:11→21:32)
[2018-09-04] MEDS: LEVOTHYROXINE 75 MCG TABLET PO SCH (05:06)
[2018-09-04 06:33] LABS: Basophils % 0.6 % (0.0-0.8); Eosinophils # 0.5 10*3/uL (0.0-0.87); Eosinophils % 7.2 % (0.00-10.9); Hematocrit 31.7 VOL% (35.7-47.0); Hemoglobin 9.9 GM/DL (12.0-16.0); Immature Granulocytes % 0.3 %; Immature Granulocytes Absolute 0.02 #; Lymphocytes # 1.8 10*3/uL (1.4-4.0); Lymphocytes % 26.2 % (21.3-54.2); Mean Corpuscular HGB Conc 31.2 GM/DL (32-36); Monocytes % 10.7 % (1.7-12.7); Platelet Count 307 T/CUMM (130-400); Red Blood Count 3.41 MC/CUMM (3.8-5.5); Red Cell Distribution Width 15.1 % (9.3-17.3); White Blood Count 6.8 T/CUMM (4-12)
[2018-09-04 06:52] LABS: Calcium 8.1 MG/DL (8.5-10.1)
[2018-09-04] MEDS: CHOLECALCIFEROL 1,000 UNIT TABLET PO SCH (09:45)
[2018-09-04] MEDS: METOPROLOL SUCCINATE XL 50 MG TABLET PO SCH ×2 (09:45→21:29)
[2018-09-04] MEDS: busPIRone 15 MG TABLET PO SCH ×3 (09:45→21:28)
[2018-09-04] MEDS: clonazePAM 0.5 MG TABLET PO PRN (09:45)
[2018-09-04] MEDS: DOCUSATE SODIUM 100 MG CAPSULE PO SCH ×2 (09:45→21:28)
[2018-09-04] MEDS: PANTOPRAZOLE 40 MG VIAL IV SCH (09:45)
[2018-09-04] MEDS: rOPINIRole 1 MG TABLET PO SCH ×3 (09:45→21:28)
[2018-09-04] MEDS: GABAPENTIN 100 MG CAPSULE PO SCH ×2 (09:45→21:28)
[2018-09-04] MEDS: RIVASTIGMINE 1.5 MG CAPSULE PO SCH ×2 (09:45→16:08)
[2018-09-04] MEDS: SUCRALFATE 1 GM/10 ML UDCUP PO SCH ×3 (13:01→21:28)
[2018-09-04] MEDS: PANTOPRAZOLE 40 MG TABLET PO SCH ×2 (13:01→21:28)
[2018-09-04] MEDS: SIMVASTATIN 10 MG TABLET PO SCH (21:28)
[2018-09-05] MEDS: LEVOTHYROXINE 75 MCG TABLET PO SCH (05:42)
[2018-09-05] MEDS: SODIUM CHLORIDE 0.9% 1,000 ML IV SCH ×2 (05:42→15:43)
[2018-09-05] MEDS: RIVASTIGMINE 1.5 MG CAPSULE PO SCH ×2 (09:04→17:11)
[2018-09-05] MEDS: SUCRALFATE 1 GM/10 ML UDCUP PO SCH ×4 (09:04→21:12)
[2018-09-05] MEDS: METOPROLOL SUCCINATE XL 50 MG TABLET PO SCH ×2 (09:05→21:12)
[2018-09-05] MEDS: GABAPENTIN 100 MG CAPSULE PO SCH ×2 (09:05→21:12)
[2018-09-05] MEDS: CHOLECALCIFEROL 1,000 UNIT TABLET PO SCH (09:05)
[2018-09-05] MEDS: rOPINIRole 1 MG TABLET PO SCH ×3 (09:05→21:12)
[2018-09-05] MEDS: DOCUSATE SODIUM 100 MG CAPSULE PO SCH ×2 (09:05→21:12)
[2018-09-05] MEDS: busPIRone 15 MG TABLET PO SCH ×3 (09:05→21:12)
[2018-09-05] MEDS: PANTOPRAZOLE 40 MG TABLET PO SCH ×2 (10:55→21:12)
[2018-09-05] MEDS: SIMVASTATIN 10 MG TABLET PO SCH (21:12)
[2018-09-06] MEDS: SODIUM CHLORIDE 0.9% 1,000 ML IV SCH (02:07)
[2018-09-06 04:53] LABS: Basophils # 0.1 10*3/uL (0.0-0.2); Basophils % 0.9 % (0.0-0.8); Eosinophils # 0.4 10*3/uL (0.0-0.87); Eosinophils % 7.8 % (0.00-10.9); Hematocrit 30.4 VOL% (35.7-47.0); Hemoglobin 9.7 GM/DL (12.0-16.0); Immature Granulocytes % 0.4 %; Immature Granulocytes Absolute 0.02 #; Lymphocytes # 1.5 10*3/uL (1.4-4.0); Lymphocytes % 27.8 % (21.3-54.2); Mean Corpuscular HGB Conc 31.9 GM/DL (32-36); Mean Corpuscular Volume 91.3 FL (87-102); Mean Platelet Volume 10.1 FL (9.6-12.0); Monocytes % 12.1 % (1.7-12.7); Platelet Count 307 T/CUMM (130-400); Red Blood Count 3.33 MC/CUMM (3.8-5.5); Red Cell Distribution Width 14.6 % (9.3-17.3); White Blood Count 5.3 T/CUMM (4-12)
[2018-09-06 05:47] LABS: Calcium 7.9 MG/DL (8.5-10.1); Osmolality,Calculated 289.3 MOS/KG (273-304)
[2018-09-06] MEDS: SUCRALFATE 1 GM/10 ML UDCUP PO SCH (06:46)
[2018-09-06] MEDS: LEVOTHYROXINE 75 MCG TABLET PO SCH (06:46)
[2018-09-06 07:47] VITALS: BP 127/75
[2018-09-06] MEDS: RIVASTIGMINE 1.5 MG CAPSULE PO SCH (08:45)
[2018-09-06] MEDS: DOCUSATE SODIUM 100 MG CAPSULE PO SCH (08:45)
[2018-09-06] MEDS: METOPROLOL SUCCINATE XL 50 MG TABLET PO SCH (08:45)
[2018-09-06] MEDS: rOPINIRole 1 MG TABLET PO SCH (08:45)
[2018-09-06] MEDS: CHOLECALCIFEROL 1,000 UNIT TABLET PO SCH (08:45)
[2018-09-06] MEDS: busPIRone 15 MG TABLET PO SCH (08:45)
[2018-09-06] MEDS: GABAPENTIN 100 MG CAPSULE PO SCH (08:45)
[2018-09-06] MEDS: PANTOPRAZOLE 40 MG TABLET PO SCH (08:45)
[2018-09-06] MEDS ORDERED: POTASSIUM CHLORIDE 8 MEQ CAPSULE PO SCH (09:00)
== END 2018-09-06 11:00 | disposition home health service (06) | DRG 378 ==
LOC: N.ED 07:16 → N.EDINP 12:28 → N.5E 12:38
PROVIDERS: ADMIT Family Medicine; ATTEND Family Medicine

== ENCOUNTER 2019-08-10 08:50 | Inpatient (IN) ==
[2019-08-10] MEDS ORDERED: propofoL 200 MG/20 ML VIAL IV ONE (09:00)
[2019-08-10] MEDS ORDERED: LIDOCAINE 2% 5 ML VIAL ONE (09:00)
[2019-08-10] MEDS ORDERED: ONDANSETRON 4 MG/2 ML VIAL IV STA (09:42)
[2019-08-10 10:53] LABS: Basophils % 0.3 % (0.0-0.8); Eosinophils % 0.1 % (0.00-10.9); Hematocrit 40.8 VOL% (35.7-47.0); Hemoglobin 13.2 GM/DL (12.0-16.0); Immature Granulocytes % 0.4 %; Immature Granulocytes Absolute 0.06 #; Lymphocytes # 1.5 10*3/uL (1.4-4.0); Lymphocytes % 10.5 % (21.3-54.2); Mean Corpuscular HGB Conc 32.4 GM/DL (32-36); Mean Corpuscular Volume 96.9 FL (87-102); Mean Platelet Volume 9.7 FL (9.6-12.0); Monocytes % 9.1 % (1.7-12.7); Neutrophils % 79.6 % (38.7-73.9); Platelet Count 337 T/CUMM (130-400); Red Blood Count 4.21 MC/CUMM (3.8-5.5); Red Cell Distribution Width 13.5 % (9.3-17.3); White Blood Count 14.7 T/CUMM (4-12)
[2019-08-10 11:06] LABS: Apearance,Urine CLEAR (Clear); Bilirubin,Urine Negative (Negative); Blood, Urine Negative (Negative); Glucose,Urine (UA) Negative (Negative); Hyaline Casts,Urine 3 /LPF (0-3); Ketones,Urine Negative (Negative); Mucus,Urine Occasional /LPF (Occasional); Nitrite,Urine Negative (Negative); Protein,Urine Negative; RBC,Urine 1 /HPF (0-4); Squamous Epithelial Cell,Urine Occasional /HPF (0-10); Urine Color Yellow (Yellow); Urine Specific Gravity 1.019 (1.001-1.035); Urine Urobilinogen < 2.0 EU/DL (0.2-1.0); WBC,Urine <1 /HPF (0-6)
[2019-08-10 11:25] LABS: Hypochromasia Slight; Macrocytosis Slight; Ovalocytes Slight; Polychromasia Slight
[2019-08-10 11:31] LABS: Alanine Aminotransferase 14 U/L (13-56); Albumin 3.6 G/DL (3.4-5.0); Alkaline Phosphatase 85 U/L (45-117); Aspartate Amino Transferase 15 U/L (0-37); Blood Urea Nitrogen 28 MG/DL (7-18); Calcium 9.4 MG/DL (8.5-10.1); Estimated Glom Filtration Rate 30 ML/MIN; Glucose 134 MG/DL (74-106); Osmolality,Calculated 280.8 MOS/KG (273-304); Total Protein 7.6 G/DL (6.4-8.3)
[2019-08-10] MEDS ORDERED: PIPERACILLIN/TAZOBACTAM 3,375 MG in SODIUM CHLORIDE 0.9% 100 ML IV STA ×2 (12:14→12:47)
[2019-08-10] MEDS ORDERED: PIPERACILLIN/TAZOBACTAM 3,375 MG VIAL IV ONE (12:47)
[2019-08-10] MEDS ORDERED: HYDROmorphone 2 MG/1 ML VIAL IV STA (12:56)
[2019-08-10] MEDS: SODIUM CHLORIDE 0.9% 1,000 ML IV SCH (15:21)
[2019-08-10] MEDS ORDERED: ZALEPLON 5 MG CAPSULE PO PRN (17:29)
[2019-08-10] MEDS ORDERED: clonazePAM 0.5 MG TABLET PO SCH (21:00)
[2019-08-10] MEDS: QUEtiapine 100 MG TABLET PO SCH (22:00)
[2019-08-10] MEDS: DOCUSATE SODIUM 100 MG CAPSULE PO SCH (22:00)
[2019-08-10] MEDS: ACETAMINOPHEN 325 MG TABLET PO PRN (22:00)
[2019-08-10] MEDS: PANTOPRAZOLE 40 MG TABLET PO SCH (22:01)
[2019-08-10] MEDS: SIMVASTATIN 10 MG TABLET PO SCH (22:01)
[2019-08-10] MEDS: SACUBITRIL/VALSARTAN 49-51 MG TABLET PO SCH (22:01)
[2019-08-10] MEDS: METOPROLOL SUCCINATE XL 25 MG TABLET PO SCH (22:01)
[2019-08-10] MEDS: rOPINIRole 1 MG TABLET PO SCH (22:02)
[2019-08-10] MEDS: GABAPENTIN 400 MG CAPSULE PO SCH (22:02)
[2019-08-11] MEDS: QUEtiapine 100 MG TABLET PO SCH ×3 (00:20→22:55)
[2019-08-11] MEDS: SODIUM CHLORIDE 0.9% 1,000 ML IV SCH ×2 (00:42→08:36)
[2019-08-11 05:26] LABS: Basophils # 0.1 10*3/uL (0.0-0.2); Basophils % 0.5 % (0.0-0.8); Eosinophils # 0.1 10*3/uL (0.0-0.87); Hematocrit 31.7 VOL% (35.7-47.0); Hemoglobin 10.2 GM/DL (12.0-16.0); Immature Granulocytes % 0.3 %; Immature Granulocytes Absolute 0.03 #; Lymphocytes # 1.7 10*3/uL (1.4-4.0); Lymphocytes % 17.5 % (21.3-54.2); Mean Corpuscular HGB Conc 32.2 GM/DL (32-36); Mean Corpuscular Volume 98.8 FL (87-102); Monocytes % 8.9 % (1.7-12.7); Neutrophils % 71.8 % (38.7-73.9); Platelet Count 250 T/CUMM (130-400); Red Blood Count 3.21 MC/CUMM (3.8-5.5); Red Cell Distribution Width 13.7 % (9.3-17.3)
[2019-08-11 06:12] LABS: Albumin 2.8 G/DL (3.4-5.0); Bilirubin,Total 0.9 MG/DL (0.2-1.0); Calcium 8.2 MG/DL (8.5-10.1); Osmolality,Calculated 282.5 MOS/KG (273-304); Thyroid Stimulating Hormone 6.3 uIU/ml (0.358-3.74); Total Protein 5.9 G/DL (6.4-8.3)
[2019-08-11] MEDS: LEVOTHYROXINE 75 MCG TABLET PO SCH (06:21)
[2019-08-11 08:01] LABS: Sedimentation Rate-Westergren 45 MM/HR (0-30)
[2019-08-11] MEDS ORDERED: PANTOPRAZOLE 40 MG TABLET PO SCH (09:00)
[2019-08-11] MEDS: SODIUM CHLOR 0.9% KCL 20 MEQ 20 MEQ/1,000 ML BAG IV SCH ×3 (09:31→22:58)
[2019-08-11] MEDS: clonazePAM 0.5 MG TABLET PO SCH ×2 (09:34→12:16)
[2019-08-11] MEDS: SACUBITRIL/VALSARTAN 49-51 MG TABLET PO SCH ×2 (09:34→22:33)
[2019-08-11] MEDS: CYANOCOBALAMIN 500 MCG TABLET PO SCH (09:34)
[2019-08-11] MEDS: rOPINIRole 1 MG TABLET PO SCH ×3 (09:34→22:33)
[2019-08-11] MEDS: METOPROLOL SUCCINATE XL 25 MG TABLET PO SCH ×2 (09:34→22:33)
[2019-08-11] MEDS: PANTOPRAZOLE 40 MG TABLET PO SCH (09:34)
[2019-08-11] MEDS: RIVASTIGMINE 3 MG CAPSULE PO SCH ×2 (09:34→17:29)
[2019-08-11] MEDS: FUROSEMIDE 20 MG TABLET PO SCH (09:35)
[2019-08-11] MEDS: DOCUSATE SODIUM 100 MG CAPSULE PO SCH ×2 (09:35→22:33)
[2019-08-11] MEDS: CHOLECALCIFEROL 5,000 UNIT TABLET PO SCH (09:35)
[2019-08-11] MEDS: SIMVASTATIN 10 MG TABLET PO SCH (22:33)
[2019-08-11] MEDS: GABAPENTIN 400 MG CAPSULE PO SCH (22:37)
[2019-08-11] MEDS: PANTOPRAZOLE 40 MG VIAL IV SCH (22:43)
[2019-08-12] MEDS: SODIUM CHLOR 0.9% KCL 20 MEQ 20 MEQ/1,000 ML BAG IV SCH ×4 (02:41→18:03)
[2019-08-12] MEDS: LEVOTHYROXINE 75 MCG TABLET PO SCH (05:09)
[2019-08-12 06:35] LABS: Basophils # 0.1 10*3/uL (0.0-0.2); Basophils % 0.8 % (0.0-0.8); Eosinophils # 0.3 10*3/uL (0.0-0.87); Eosinophils % 3.9 % (0.00-10.9); Hematocrit 30.5 VOL% (35.7-47.0); Hemoglobin 9.4 GM/DL (12.0-16.0); Immature Granulocytes % 0.3 %; Immature Granulocytes Absolute 0.02 #; Lymphocytes # 2.2 10*3/uL (1.4-4.0); Lymphocytes % 29.9 % (21.3-54.2); Mean Corpuscular HGB Conc 30.8 GM/DL (32-36); Mean Corpuscular Volume 101.7 FL (87-102); Mean Platelet Volume 9.7 FL (9.6-12.0); Monocytes % 8.1 % (1.7-12.7); Platelet Count 246 T/CUMM (130-400); Red Cell Distribution Width 13.6 % (9.3-17.3); White Blood Count 7.5 T/CUMM (4-12)
[2019-08-12 06:53] LABS: Albumin 2.4 G/DL (3.4-5.0); Bilirubin,Total 0.4 MG/DL (0.2-1.0); Calcium 7.7 MG/DL (8.5-10.1); Osmolality,Calculated 284.1 MOS/KG (273-304); Total Protein 5.4 G/DL (6.4-8.3)
[2019-08-12] MEDS: CYANOCOBALAMIN 500 MCG TABLET PO SCH (10:14)
[2019-08-12] MEDS: RIVASTIGMINE 3 MG CAPSULE PO SCH ×2 (10:14→17:35)
[2019-08-12] MEDS: rOPINIRole 1 MG TABLET PO SCH ×3 (10:14→21:20)
[2019-08-12] MEDS: SACUBITRIL/VALSARTAN 49-51 MG TABLET PO SCH ×2 (10:15→21:19)
[2019-08-12] MEDS: CHOLECALCIFEROL 5,000 UNIT TABLET PO SCH (10:15)
[2019-08-12] MEDS: FUROSEMIDE 20 MG TABLET PO SCH (10:15)
[2019-08-12] MEDS: METOPROLOL SUCCINATE XL 25 MG TABLET PO SCH ×2 (10:15→21:20)
[2019-08-12] MEDS: DOCUSATE SODIUM 100 MG CAPSULE PO SCH ×2 (10:15→21:19)
[2019-08-12] MEDS: PANTOPRAZOLE 40 MG VIAL IV SCH ×2 (10:15→21:19)
[2019-08-12] MEDS: clonazePAM 0.5 MG TABLET PO SCH ×2 (10:16→13:27)
[2019-08-12] MEDS: ONDANSETRON 4 MG/2 ML VIAL IV PRN (15:26)
[2019-08-12] MEDS: MECLIZINE 25 MG TABLET PO SCH (21:19)
[2019-08-12] MEDS: GABAPENTIN 400 MG CAPSULE PO SCH (21:19)
[2019-08-12] MEDS: SIMVASTATIN 10 MG TABLET PO SCH (21:20)
[2019-08-12] MEDS: QUEtiapine 100 MG TABLET PO SCH ×2 (21:20)
[2019-08-13] MEDS: LEVOTHYROXINE 75 MCG TABLET PO SCH (06:11)
[2019-08-13] MEDS: MECLIZINE 25 MG TABLET PO SCH ×2 (09:22→21:46)
[2019-08-13] MEDS: CYANOCOBALAMIN 500 MCG TABLET PO SCH (09:22)
[2019-08-13] MEDS: RIVASTIGMINE 3 MG CAPSULE PO SCH ×2 (09:22→16:45)
[2019-08-13] MEDS: CHOLECALCIFEROL 5,000 UNIT TABLET PO SCH (09:22)
[2019-08-13] MEDS: FUROSEMIDE 20 MG TABLET PO SCH (09:22)
[2019-08-13] MEDS: rOPINIRole 1 MG TABLET PO SCH ×3 (09:22→21:46)
[2019-08-13] MEDS: METOPROLOL SUCCINATE XL 25 MG TABLET PO SCH ×2 (09:22→21:47)
[2019-08-13] MEDS: SODIUM CHLOR 0.9% KCL 20 MEQ 20 MEQ/1,000 ML BAG IV SCH ×3 (09:23→17:23)
[2019-08-13] MEDS: DOCUSATE SODIUM 100 MG CAPSULE PO SCH ×2 (09:23→21:46)
[2019-08-13] MEDS: SACUBITRIL/VALSARTAN 49-51 MG TABLET PO SCH ×2 (09:23→21:46)
[2019-08-13] MEDS: clonazePAM 0.5 MG TABLET PO SCH ×2 (09:23→14:00)
[2019-08-13] MEDS: PANTOPRAZOLE 40 MG VIAL IV SCH ×2 (09:25→21:46)
[2019-08-13] MEDS: ONDANSETRON 4 MG/2 ML VIAL IV PRN (11:17)
[2019-08-13] MEDS ORDERED: PROMETHAZINE INJ 12.5 MG in SODIUM CHLORIDE 0.9% 50 ML IV ONE (15:06)
[2019-08-13] MEDS ORDERED: PROMETHAZINE 25 MG/1 ML VIAL IM ONE (16:15)
[2019-08-13] MEDS: SUCRALFATE 1 GM/10 ML UDCUP PO SCH (16:45)
[2019-08-13] MEDS ORDERED: PROMETHAZINE 25 MG/1 ML VIAL IM PRN (21:24)
[2019-08-13] MEDS: GABAPENTIN 400 MG CAPSULE PO SCH (21:46)
[2019-08-13] MEDS: FAMOTIDINE 20 MG TABLET PO SCH (21:46)
[2019-08-13] MEDS: SIMVASTATIN 10 MG TABLET PO SCH (21:47)
[2019-08-13] MEDS: QUEtiapine 100 MG TABLET PO SCH ×2 (21:47)
[2019-08-14 05:49] LABS: Basophils # 0.1 10*3/uL (0.0-0.2); Eosinophils # 0.3 10*3/uL (0.0-0.87); Eosinophils % 5.4 % (0.00-10.9); Hematocrit 31.1 VOL% (35.7-47.0); Immature Granulocytes % 0.4 %; Immature Granulocytes Absolute 0.02 #; Lymphocytes # 1.3 10*3/uL (1.4-4.0); Mean Corpuscular HGB Conc 32.2 GM/DL (32-36); Mean Corpuscular Volume 97.5 FL (87-102); Mean Platelet Volume 9.9 FL (9.6-12.0); Monocytes % 9.3 % (1.7-12.7); Neutrophils % 56.9 % (38.7-73.9); Platelet Count 253 T/CUMM (130-400); Red Blood Count 3.19 MC/CUMM (3.8-5.5); Red Cell Distribution Width 13.2 % (9.3-17.3)
[2019-08-14] MEDS: SODIUM CHLOR 0.9% KCL 20 MEQ 20 MEQ/1,000 ML BAG IV SCH ×2 (05:53→18:26)
[2019-08-14] MEDS: LEVOTHYROXINE 75 MCG TABLET PO SCH (05:54)
[2019-08-14 06:25] LABS: Albumin 2.6 G/DL (3.4-5.0); Bilirubin,Total 1.3 MG/DL (0.2-1.0); Calcium 8.3 MG/DL (8.5-10.1); Osmolality,Calculated 276.4 MOS/KG (273-304); Total Protein 5.5 G/DL (6.4-8.3)
[2019-08-14] MEDS: clonazePAM 0.5 MG TABLET PO SCH ×2 (08:18→13:01)
[2019-08-14] MEDS: SUCRALFATE 1 GM/10 ML UDCUP PO SCH ×3 (08:18→17:08)
[2019-08-14] MEDS: rOPINIRole 1 MG TABLET PO SCH ×3 (08:19→22:44)
[2019-08-14] MEDS: CHOLECALCIFEROL 5,000 UNIT TABLET PO SCH (08:19)
[2019-08-14] MEDS: CYANOCOBALAMIN 500 MCG TABLET PO SCH (08:19)
[2019-08-14] MEDS: METOPROLOL SUCCINATE XL 25 MG TABLET PO SCH ×2 (08:19→22:44)
[2019-08-14] MEDS: SACUBITRIL/VALSARTAN 49-51 MG TABLET PO SCH ×2 (08:19→22:45)
[2019-08-14] MEDS: DOCUSATE SODIUM 100 MG CAPSULE PO SCH ×2 (08:20→22:44)
[2019-08-14] MEDS: FUROSEMIDE 20 MG TABLET PO SCH (08:20)
[2019-08-14] MEDS: PANTOPRAZOLE 40 MG VIAL IV SCH ×2 (08:20→22:42)
[2019-08-14] MEDS: RIVASTIGMINE 3 MG CAPSULE PO SCH ×2 (08:20→17:09)
[2019-08-14] MEDS: MECLIZINE 25 MG TABLET PO SCH ×2 (08:21→22:45)
[2019-08-14] MEDS: ACETAMINOPHEN 325 MG TABLET PO PRN ×2 (17:08→22:43)
[2019-08-14] MEDS: GABAPENTIN 400 MG CAPSULE PO SCH (22:43)
[2019-08-14] MEDS: QUEtiapine 100 MG TABLET PO SCH ×2 (22:43→22:46)
[2019-08-14] MEDS: SIMVASTATIN 10 MG TABLET PO SCH (22:44)
[2019-08-14] MEDS: FAMOTIDINE 20 MG TABLET PO SCH (22:45)
[2019-08-15 05:18] LABS: Basophils # 0.1 10*3/uL (0.0-0.2); Basophils % 1.2 % (0.0-0.8); Eosinophils # 0.3 10*3/uL (0.0-0.87); Eosinophils % 5.2 % (0.00-10.9); Hematocrit 32.9 VOL% (35.7-47.0); Hemoglobin 10.5 GM/DL (12.0-16.0); Immature Granulocytes % 0.4 %; Immature Granulocytes Absolute 0.02 #; Lymphocytes # 1.4 10*3/uL (1.4-4.0); Lymphocytes % 27.5 % (21.3-54.2); Mean Corpuscular HGB Conc 31.9 GM/DL (32-36); Mean Corpuscular Volume 97.3 FL (87-102); Mean Platelet Volume 9.8 FL (9.6-12.0); Monocytes % 11.2 % (1.7-12.7); Neutrophils % 54.5 % (38.7-73.9); Platelet Count 281 T/CUMM (130-400); Red Blood Count 3.38 MC/CUMM (3.8-5.5); Red Cell Distribution Width 13.3 % (9.3-17.3)
[2019-08-15] MEDS: LEVOTHYROXINE 75 MCG TABLET PO SCH (05:18)
[2019-08-15 06:00] LABS: Albumin 2.7 G/DL (3.4-5.0); Bilirubin,Total 1.1 MG/DL (0.2-1.0); Calcium 8.2 MG/DL (8.5-10.1); Osmolality,Calculated 272.8 MOS/KG (273-304); Total Protein 5.6 G/DL (6.4-8.3)
[2019-08-15] MEDS ORDERED: LEVOFLOXACIN 500 MG TABLET PO SCH (08:30)
[2019-08-15] MEDS ORDERED: POTASSIUM CHLORIDE 10 MEQ TABLET PO SCH (09:00)
[2019-08-15] MEDS: CYANOCOBALAMIN 500 MCG TABLET PO SCH (09:23)
[2019-08-15] MEDS: SUCRALFATE 1 GM/10 ML UDCUP PO SCH ×2 (09:23→13:08)
[2019-08-15] MEDS: SACUBITRIL/VALSARTAN 49-51 MG TABLET PO SCH (09:23)
[2019-08-15] MEDS: rOPINIRole 1 MG TABLET PO SCH ×2 (09:24→13:16)
[2019-08-15] MEDS: metroNIDAZOLE 500 MG TABLET PO SCH ×2 (09:24→15:41)
[2019-08-15] MEDS: RIVASTIGMINE 3 MG CAPSULE PO SCH (09:24)
[2019-08-15] MEDS: MECLIZINE 25 MG TABLET PO SCH (09:24)
[2019-08-15] MEDS: CHOLECALCIFEROL 5,000 UNIT TABLET PO SCH (09:24)
[2019-08-15] MEDS: clonazePAM 0.5 MG TABLET PO SCH ×2 (09:24→13:08)
[2019-08-15] MEDS: METOPROLOL SUCCINATE XL 25 MG TABLET PO SCH (09:25)
[2019-08-15] MEDS: DOCUSATE SODIUM 100 MG CAPSULE PO SCH (09:25)
[2019-08-15] MEDS: FUROSEMIDE 20 MG TABLET PO SCH (09:25)
[2019-08-15] MEDS: PANTOPRAZOLE 40 MG VIAL IV SCH (09:27)
[2019-08-15 11:21] VITALS: BP 102/60
== END 2019-08-15 15:56 | disposition home health service (06) | DRG 384 ==
LOC: EDUNIT# → EDBD → N.EDINP 08:50 → N.ED 08:50 → N.EDINP 15:30 → N.3E 15:45
PROVIDERS: ADMIT Family Medicine; ATTEND Family Medicine

== ENCOUNTER 2021-06-02 01:56 | Inpatient (IN) ==
[2021-06-02] MEDS ORDERED: ASPIRIN 325 MG TABLET PO STA (02:35)
[2021-06-02] MEDS ORDERED: SODIUM CHLORIDE 0.9% 1,000 ML IV STA (02:35)
[2021-06-02 02:46] LABS: Basophils # 0.1 10*3/uL (0.0-0.2); Basophils % 1.3 % (0.0-0.8); Eosinophils # 0.3 10*3/uL (0.0-0.87); Eosinophils % 5.4 % (0.00-10.9); Hematocrit 36.9 VOL% (35.7-47.0); Hemoglobin 11.4 GM/DL (12.0-16.0); Immature Granulocytes % 0.4 %; Immature Granulocytes Absolute 0.02 #; Lymphocytes # 1.9 10*3/uL (1.4-4.0); Lymphocytes % 39.6 % (21.3-54.2); Mean Corpuscular HGB Conc 30.9 GM/DL (32-36); Mean Corpuscular Volume 101.9 FL (87-102); Mean Platelet Volume 10.5 FL (9.6-12.0); Monocytes % 10.2 % (1.7-12.7); Neutrophils % 43.1 % (38.7-73.9); Platelet Count 253 T/CUMM (130-400); Red Blood Count 3.62 MC/CUMM (3.8-5.5); Red Cell Distribution Width 13.5 % (9.3-17.3); White Blood Count 4.8 T/CUMM (4-12)
[2021-06-02 02:57] LABS: INR 1.1; PT Patient Result 11.7 SECS (10.5-12.0)
[2021-06-02 03:43] LABS: Granular Casts,Urine 1 /LPF (0-1); Hyaline Casts,Urine 18 /LPF (0-3); Mucus,Urine Occasional /LPF (Occasional); RBC,Urine 8 /HPF (0-4); Squamous Epithelial Cell,Urine Occasional /HPF (0-10)
[2021-06-02 03:44] LABS: Glucose,Urine (UA) Negative (Negative); Ketones,Urine Negative (Negative); Nitrite,Urine Negative (Negative); Protein,Urine 30 mg/dL (Negative); Urine Appearance Clear (Clear); Urine Color Yellow (Yellow); Urine Specific Gravity >= 1.030 (1.001-1.035)
[2021-06-02 03:45] LABS: Bilirubin,Urine Negative (Negative); Blood, Urine Moderate mg/dL (Negative); Urine Urobilinogen 0.2 eU/dL (<2.0)
[2021-06-02] MEDS ORDERED: cefTRIAXone 1,000 MG in SODIUM CHLORIDE 0.9% 100 ML IV STA (03:54)
[2021-06-02 04:03] LABS: Alanine Aminotransferase 13 U/L (13-56); Albumin 3.1 G/DL (3.4-5.0); Alkaline Phosphatase 70 U/L (45-117); Aspartate Amino Transferase 16 U/L (0-37); Bilirubin,Total < 0.39 MG/DL (0.20-1.00); Blood Urea Nitrogen 35 MG/DL (7-18); Calcium 9.5 MG/DL (8.5-10.1); Carbon Dioxide 22 MMOL/L (21-32); Estimated Glom Filtration Rate 12 ML/MIN; Glucose 95 MG/DL (74-106); Osmolality,Calculated 293.8 MOS/KG (273-304); Sodium 144 MMOL/L (136-145); Total Protein 6.6 G/DL (6.4-8.2)
[2021-06-02 04:05] LABS: Potassium 6.2 MMOL/L (3.5-5.1)
[2021-06-02] MEDS ORDERED: INSULIN REGULAR 100 UNIT/ML IV STA (04:22)
[2021-06-02] MEDS ORDERED: DEXTROSE 50% 25 GM/50 ML VIAL IV STA (04:22)
[2021-06-02] MEDS ORDERED: ONDANSETRON 4 MG/2 ML VIAL IV PRN (04:28)
[2021-06-02] MEDS ORDERED: ACETAMINOPHEN 325 MG TABLET PO PRN (04:28)
[2021-06-02] MEDS ORDERED: DEXTROSE 50% 25 GM/50 ML SYRINGE IV ONE (04:53)
[2021-06-02] MEDS: SODIUM CHLORIDE 0.9% 1,000 ML IV SCH ×2 (06:19→15:32)
[2021-06-02] MEDS: LEVOTHYROXINE 75 MCG TABLET PO SCH (06:20)
[2021-06-02 07:22] LABS: Calcium 9.2 MG/DL (8.5-10.1); Osmolality,Calculated 291.8 MOS/KG (273-304); Potassium 5.9 MMOL/L (3.5-5.1)
[2021-06-02] MEDS ORDERED: ZALEPLON 5 MG CAPSULE PO PRN (08:31)
[2021-06-02] MEDS: rOPINIRole 1 MG TABLET PO SCH (09:32)
[2021-06-02] MEDS: RIVASTIGMINE 3 MG CAPSULE PO SCH ×2 (09:33→21:15)
[2021-06-02] MEDS: clonazePAM 0.5 MG TABLET PO SCH ×3 (09:33→21:15)
[2021-06-02] MEDS: CHOLECALCIFEROL 1,000 UNIT TABLET PO SCH (09:33)
[2021-06-02] MEDS: SACUBITRIL/VALSARTAN 49-51 MG TABLET PO SCH ×2 (09:33→21:15)
[2021-06-02] MEDS: LOSARTAN 25 MG TABLET PO SCH ×2 (09:33→21:16)
[2021-06-02] MEDS: PANTOPRAZOLE 40 MG TABLET PO SCH (09:33)
[2021-06-02] MEDS: ASPIRIN EC 81 MG TABLET PO SCH (09:33)
[2021-06-02] MEDS: FUROSEMIDE 20 MG TABLET PO SCH (09:33)
[2021-06-02] MEDS: METOPROLOL SUCCINATE XL 50 MG TABLET PO SCH ×2 (09:34→21:16)
[2021-06-02] MEDS: MEMANTINE 5 MG TABLET PO SCH ×2 (09:34→21:16)
[2021-06-02] MEDS: QUEtiapine 100 MG TABLET PO SCH ×2 (15:30→21:16)
[2021-06-02] MEDS: GABAPENTIN 400 MG CAPSULE PO SCH (21:15)
[2021-06-02] MEDS: cefTRIAXone 1,000 MG in SODIUM CHLORIDE 0.9% 100 ML IV SCH (21:15)
[2021-06-02] MEDS: SIMVASTATIN 10 MG TABLET PO SCH (21:16)
[2021-06-03] MEDS: SODIUM CHLORIDE 0.9% 1,000 ML IV SCH ×2 (00:36→03:17)
[2021-06-03 05:13] LABS: Basophils # 0.1 10*3/uL (0.0-0.2); Basophils % 1.4 % (0.0-0.8); Eosinophils # 0.3 10*3/uL (0.0-0.87); Eosinophils % 6.5 % (0.00-10.9); Hematocrit 31.5 VOL% (35.7-47.0); Hemoglobin 10.1 GM/DL (12.0-16.0); Immature Granulocytes % 0.2 %; Immature Granulocytes Absolute 0.01 #; Lymphocytes % 39.1 % (21.3-54.2); Mean Corpuscular HGB Conc 32.1 GM/DL (32-36); Mean Corpuscular Volume 99.7 FL (87-102); Mean Platelet Volume 10.5 FL (9.6-12.0); Neutrophils % 43.8 % (38.7-73.9); Platelet Count 219 T/CUMM (130-400); Red Blood Count 3.16 MC/CUMM (3.8-5.5); Red Cell Distribution Width 13.3 % (9.3-17.3); White Blood Count 5.1 T/CUMM (4-12)
[2021-06-03 05:38] LABS: Alanine Aminotransferase < 9 U/L (13-56); Albumin 2.6 G/DL (3.4-5.0); Alkaline Phosphatase 59 U/L (45-117); Aspartate Amino Transferase 11 U/L (0-37); Bilirubin,Total < 0.39 MG/DL (0.20-1.00); Blood Urea Nitrogen 27 MG/DL (7-18); Calcium 8.9 MG/DL (8.5-10.1); Carbon Dioxide 22 MMOL/L (21-32); Estimated Glom Filtration Rate 19 ML/MIN; Free T4 (Free Thyroxine) 0.58 NG/DL (0.76-1.46); Glucose 92 MG/DL (74-106); Osmolality,Calculated 294.6 MOS/KG (273-304); Sodium 146 MMOL/L (136-145); Total Protein 5.4 G/DL (6.4-8.2)
[2021-06-03] MEDS: LEVOTHYROXINE 75 MCG TABLET PO SCH (06:06)
[2021-06-03] MEDS: MAGNESIUM SULF INJ 2 GM in SODIUM CHLORIDE 0.9% 1,000 ML IV SCH ×2 (09:07→19:22)
[2021-06-03] MEDS: MEMANTINE 5 MG TABLET PO SCH ×2 (09:07→20:57)
[2021-06-03] MEDS: ASPIRIN EC 81 MG TABLET PO SCH (09:07)
[2021-06-03] MEDS: SACUBITRIL/VALSARTAN 49-51 MG TABLET PO SCH ×2 (09:07→20:57)
[2021-06-03] MEDS: METOPROLOL SUCCINATE XL 50 MG TABLET PO SCH ×2 (09:07→20:57)
[2021-06-03] MEDS: RIVASTIGMINE 3 MG CAPSULE PO SCH ×2 (09:07→20:57)
[2021-06-03] MEDS: LOSARTAN 25 MG TABLET PO SCH ×2 (09:07→20:57)
[2021-06-03] MEDS: rOPINIRole 1 MG TABLET PO SCH (09:07)
[2021-06-03] MEDS: PANTOPRAZOLE 40 MG TABLET PO SCH (09:08)
[2021-06-03] MEDS: clonazePAM 0.5 MG TABLET PO SCH ×3 (09:08→20:57)
[2021-06-03] MEDS: FUROSEMIDE 20 MG TABLET PO SCH (09:08)
[2021-06-03] MEDS: CHOLECALCIFEROL 1,000 UNIT TABLET PO SCH (09:08)
[2021-06-03] MEDS: QUEtiapine 100 MG TABLET PO SCH ×2 (15:47→20:56)
[2021-06-03] MEDS: cefTRIAXone 1,000 MG in SODIUM CHLORIDE 0.9% 100 ML IV SCH (20:56)
[2021-06-03] MEDS: GABAPENTIN 400 MG CAPSULE PO SCH (20:57)
[2021-06-03] MEDS: SIMVASTATIN 10 MG TABLET PO SCH (20:57)
[2021-06-04] MEDS: MAGNESIUM SULF INJ 2 GM in SODIUM CHLORIDE 0.9% 1,000 ML IV SCH ×2 (05:33→18:29)
[2021-06-04] MEDS: LEVOTHYROXINE 88 MCG TABLET PO SCH (05:33)
[2021-06-04 07:37] LABS: Basophils # 0.1 10*3/uL (0.0-0.2); Basophils % 0.9 % (0.0-0.8); Eosinophils # 0.3 10*3/uL (0.0-0.87); Eosinophils % 5.3 % (0.00-10.9); Hematocrit 30.6 VOL% (35.7-47.0); Hemoglobin 9.8 GM/DL (12.0-16.0); Immature Granulocytes % 0.3 %; Immature Granulocytes Absolute 0.02 #; Lymphocytes # 1.8 10*3/uL (1.4-4.0); Mean Corpuscular Volume 99.7 FL (87-102); Mean Platelet Volume 10.2 FL (9.6-12.0); Monocytes % 7.4 % (1.7-12.7); Neutrophils % 55.1 % (38.7-73.9); Platelet Count 187 T/CUMM (130-400); Red Blood Count 3.07 MC/CUMM (3.8-5.5); Red Cell Distribution Width 13.5 % (9.3-17.3); White Blood Count 5.8 T/CUMM (4-12)
[2021-06-04 08:02] LABS: Calcium 8.1 MG/DL (8.5-10.1); Osmolality,Calculated 292.6 MOS/KG (273-304); Potassium 5.3 MMOL/L (3.5-5.1)
[2021-06-04] MEDS: SACUBITRIL/VALSARTAN 49-51 MG TABLET PO SCH ×2 (09:52→21:23)
[2021-06-04] MEDS: RIVASTIGMINE 3 MG CAPSULE PO SCH ×2 (09:52→21:23)
[2021-06-04] MEDS: clonazePAM 0.5 MG TABLET PO SCH ×3 (09:52→21:24)
[2021-06-04] MEDS: rOPINIRole 1 MG TABLET PO SCH (09:52)
[2021-06-04] MEDS: MEMANTINE 5 MG TABLET PO SCH ×2 (09:53→21:24)
[2021-06-04] MEDS: FUROSEMIDE 20 MG TABLET PO SCH (09:53)
[2021-06-04] MEDS: LOSARTAN 25 MG TABLET PO SCH ×2 (09:53→21:23)
[2021-06-04] MEDS: CHOLECALCIFEROL 1,000 UNIT TABLET PO SCH (09:53)
[2021-06-04] MEDS: PANTOPRAZOLE 40 MG TABLET PO SCH (09:53)
[2021-06-04] MEDS: ASPIRIN EC 81 MG TABLET PO SCH (09:53)
[2021-06-04] MEDS: METOPROLOL SUCCINATE XL 50 MG TABLET PO SCH ×2 (09:54→21:23)
[2021-06-04] MEDS: QUEtiapine 100 MG TABLET PO SCH ×2 (15:54→21:22)
[2021-06-04] MEDS: GABAPENTIN 400 MG CAPSULE PO SCH (21:23)
[2021-06-04] MEDS: SIMVASTATIN 10 MG TABLET PO SCH (21:23)
[2021-06-04] MEDS: cefTRIAXone 1,000 MG in SODIUM CHLORIDE 0.9% 100 ML IV SCH (21:24)
[2021-06-05] MEDS: MAGNESIUM SULF INJ 2 GM in SODIUM CHLORIDE 0.9% 1,000 ML IV SCH ×2 (03:32→11:25)
[2021-06-05] MEDS: LEVOTHYROXINE 88 MCG TABLET PO SCH (05:41)
[2021-06-05 06:09] LABS: Basophils # 0.1 10*3/uL (0.0-0.2); Eosinophils # 0.4 10*3/uL (0.0-0.87); Eosinophils % 4.2 % (0.00-10.9); Hematocrit 31.3 VOL% (35.7-47.0); Hemoglobin 10.2 GM/DL (12.0-16.0); Immature Granulocytes % 0.2 %; Immature Granulocytes Absolute 0.02 #; Lymphocytes % 23.6 % (21.3-54.2); Mean Corpuscular HGB Conc 32.6 GM/DL (32-36); Mean Platelet Volume 11.3 FL (9.6-12.0); Platelet Count 196 T/CUMM (130-400); Red Blood Count 3.13 MC/CUMM (3.8-5.5); Red Cell Distribution Width 13.6 % (9.3-17.3); White Blood Count 8.3 T/CUMM (4-12)
[2021-06-05 06:24] LABS: Calcium 7.9 MG/DL (8.5-10.1); Osmolality,Calculated 286.8 MOS/KG (273-304); Potassium 4.4 MMOL/L (3.5-5.1)
[2021-06-05 07:48] VITALS: BP 133/72
[2021-06-05] MEDS: SACUBITRIL/VALSARTAN 49-51 MG TABLET PO SCH (09:32)
[2021-06-05] MEDS: FUROSEMIDE 20 MG TABLET PO SCH (09:32)
[2021-06-05] MEDS: RIVASTIGMINE 3 MG CAPSULE PO SCH (09:32)
[2021-06-05] MEDS: clonazePAM 0.5 MG TABLET PO SCH (09:32)
[2021-06-05] MEDS: ASPIRIN EC 81 MG TABLET PO SCH (09:33)
[2021-06-05] MEDS: METOPROLOL SUCCINATE XL 50 MG TABLET PO SCH (09:33)
[2021-06-05] MEDS: LOSARTAN 25 MG TABLET PO SCH (09:33)
[2021-06-05] MEDS: rOPINIRole 1 MG TABLET PO SCH (09:33)
[2021-06-05] MEDS: MEMANTINE 5 MG TABLET PO SCH (09:33)
[2021-06-05] MEDS: PANTOPRAZOLE 40 MG TABLET PO SCH (09:33)
[2021-06-05] MEDS: CHOLECALCIFEROL 1,000 UNIT TABLET PO SCH (09:33)
== END 2021-06-05 11:35 | disposition home or self-care (01) | DRG 683 ==
LOC: EDUNIT# → EDBD → N.ED 01:56 → N.EDINP 04:27 → N.TELEN 05:42
PROVIDERS: ADMIT Family Medicine; ATTEND Family Medicine